=== PATIENT | female | born 1960 | race Caucasian/White ===

== ENCOUNTER 2018-05-18 03:29 | Emergency (ER) | payer SELFPAY ==
[~2018-05-18] VITALS: Ht 157.5 cm; Wt 66.2 kg
[~2018-05-18 03:29] MED LIST: ALB0.5V; ASP81TEC PO; CRS350T PO; HYDR-3720; HYDR-3720 PO; METH4TAB PO; METO-354 PO; NAPR-243 PO; ONDAN4ODT PO; PNT40TEC PO; RANI-10 PO; RT-ALBUINH IH; SULF1TAB35 PO; TRAM-42 PO; TRM50T PO; [UNRECOGNIZED DRUG - REMARK]
[2018-05-18] MEDS ORDERED: LORATADINE (CLARITIN) 10 MG TAB PO ONE (03:45)
--- NOTE | 2018-05-18 03:49 | ED Respiratory ---
General Chief Complaint: Allergic Reaction Stated Complaint: L ARM NUMB THROAT SWOLLEN Source: patient Exam Limitations: no limitations History of Present Illness Date Seen by Provider: May 18, 2018 Time Seen by Provider: 03:35 Initial Comments The patient presents to the ER by private conveyance with a chief complaint that she was woken from sleep feeling like she was a little short of breath and her throat was swelling shut. She says however with a bout 1020 minutes it went away. She's not feeling as bad now she still feels a little itchy in her throat. She has a history of COPD. She is not having any wheezing or stridor however. She has no nausea vomiting fevers chills chest pain, abdominal pain diarrhea or constipation. She says she recently started Ultram yesterday with her first dose and final dose being at 1600, approximately 12 hours ago. She was started on that from the ER for an exacerbation of back pain that started a couple weeks ago. She is not had any other changes in her life recently. She says the same thing happened to her once when she took prednisone she said she felt tight in her throat. Allergies and Home Medications Allergies Coded Allergies: codeine (Unverified Allergy, Mild, HIVES, 03/23/09) Home Medications Albuterol Sulfate 1 Puff Puff, 2 PUFF IH Q4H, (Reported) 1 PUFF = 90 MCG Tramadol HCl 50 Mg Tablet, 50 MG PO Q6H PRN for PAIN-MODERATE TO SEVERE Prescribed by: SUSAN NAVAS on 05/13/18 6846 Patient Home Medication List Home Medication List Reviewed: Yes Review of Systems Constitutional: No chills, No fever, No malaise EENTM: No ear discharge, No ear pain Respiratory: No cough, No short of breath Cardiovascular: No chest pain, No palpitations Gastrointestinal: No abdominal pain, No constipation, No diarrhea, No nausea Genitourinary: No discharge, No dysuria Musculoskeletal: No back pain, No joint pain Past Nvioupm-Ihbure-Ascrjt Hx Patient Social History Alcohol Use: Denies Use Recreational Drug Use: No Smoking Status: Current Everyday Smoker Type Used: Cigarettes Recent Foreign Travel: No Contact w/Someone Who Travel: No Recent Hopitalizations: No Immunizations Up To Date Tetanus Booster (TDap): Less than 5yrs PED Vaccines UTD: No Date of Pneumonia Vaccine: Sep 17, 2013 Seasonal Allergies Seasonal Allergies: No Past Medical History Surgeries: Yes Appendectomy, Gallbladder Respiratory: Yes Pneumonia, COPD Cardiac: No Neurological: No Reproductive Disorders: No Female 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 Sexually Transmitted Disease: No HIV/AIDS: No Gastrointestinal: No Gastroesophageal Reflux Musculoskeletal: No Endocrine: No Cataract Loss of Vision: Denies Hearing Impairment: Denies Cancer: No Psychosocial: No Integumentary: No Blood Disorders: No Adverse Reaction/Blood Tranf: No Family Medical History Cancer 19 MOTHER (BRAIN AT AGE 63) G8 BROTHER (THROAT) G8 SISTER Congestive heart failure 19 FATHER Family history: Breast disease G8 SISTER (BREAST CANCER) Family history: Cardiovascular disease 19 FATHER Family history: Diabetes mellitus 19 MOTHER G8 BROTHER History of - respiratory disease 19 FATHER Human immunodeficiency virus (HIV) seropositivity G8 SISTER, Onset:Unknown Physical Exam Vital Signs Capillary Refill : General Appearance: no apparent distress, other (disheveled) Eyes: Bilateral Eye Normal Inspection, Bilateral Eye PERRL, Bilateral Eye EOMI HEENT: PERRL/EOMI, normal ENT inspection, TMs normal, pharynx normal (no erythema, tonsillar swelling, stridor, exudates) Neck: non-tender, full range of motion, supple, normal inspection Respiratory: chest non-tender, lungs clear, normal breath sounds, no respiratory distress, no accessory muscle use Cardiovascular: normal peripheral pulses, regular rate, rhythm, no edema Neurologic/Psychiatric: alert, normal mood/affect, oriented x 3 Progress/Results/Core Measures Suspected Sepsis SIRS Temperature: Pulse: Respiratory Rate: Blood Pressure / Mean: Results/Orders My Orders Orders - SHERICE FIGUEROA Loratadine Tablet (Claritin Tablet) (05/18/18 03:45) Vital Signs/I&O Capillary Refill : Progress Note : Time: 03:47 Progress Note Perhaps she is having some allergies as why she has a scratchy sore throat but there is no evidence of any stridor or laryngitis or anaphylaxis. If she took tramadol at 1600, then 12 hours later is unreasonable to expect an anaphylactic reaction. We'll give her some Claritin and have her follow-up with her primary care doctor this week. Departure Impression Primary Impression: Sore throat Disposition: 01 HOME, SELF-CARE Condition: Stable Departure-Patient Inst. Decision time for Depature: 03:48 Referrals: JAMES SIDDIQUI (PCP/Family) Primary Care Physician Patient Instructions: Seasonal Allergies (DC) Add. 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 Follow up with your primary care doctor this week. If you have a difficult time breathing , wheezing or whistling sound when he breathes or if you have fevers above 102.5 Fahrenheit you should follow-up in the ER. All discharge instructions reviewed with patient and/or family. Voiced understanding. Copy Copies To 1: ADILIA CRUZ TITUS J May 18, 2018 03:49
[2018-05-18 03:58] VITALS: BP 128/85
== END 2018-05-18 03:58 | disposition home or self-care (01) ==
LOC: EDUNIT# 03:29 → ER 03:32
DX: J02.9 Acute pharyngitis, unspecified (principal); J44.9 Chronic obstructive pulmonary disease, unspecified; K21.9 Gastro-esophageal reflux disease without esophagitis; F17.210 Nicotine dependence, cigarettes, uncomplicated; Z87.01 Personal history of pneumonia (recurrent); Z90.49 Acquired absence of other specified parts of digestive tract; Z98.890 Other specified postprocedural states; Z88.5 Allergy status to narcotic agent
CPT/HCPCS: 99283

== ENCOUNTER → 2019-09-28 | Outpatient (CLI) | payer SELFPAY ==
--- NOTE | 2019-09-28 16:27 | Diagnostic Imaging Report ---
INDICATION: Disorders of bone density, postmenopausal state. COMPARISON: None available. FINDINGS: AP Spine L1-L4: [BMD (g/cm2): 0.921] [T-Score: -2.3] [Z-Score: -1.2] [BMD Previous: N/A] [BMD % Change: N/A] LT Hip Neck: [BMD (g/cm2): 0.666] [T-Score: -2.7] [Z-Score: -1.5] LT Hip Total: [BMD (g/cm2):0.699] [T-Score:-2.4] [Z-Score: -1.6] [BMD Previous: N/A] [BMD % Change: N/A] RT Hip Neck: [BMD (g/cm2):0.686] [T-Score:-2.5] [Z-Score:-1.3] RT Hip Total: [BMD (g/cm2):0.751] [T-score:-2.0] [Z-Score:-1.2] [BMD Previous:N/A] [BMD % Change:N/A] *Indicates significant change from prior examination based on 95% confidence level. World Health Organization criteria for BMD interpretation classify patients as Normal (T-score at or above -1.0), Osteopenic (T-score between -1.0 and -2.5) or Osteoporotic (T-score at or below -2.5). LIMITATIONS AND MODIFICATION: None. FRACTURE RISK (FRAX SCORE): The ten year probability of (%): Major Osteoporotic Fracture: [13.5] Hip Fracture: [4.5] IMPRESSION: 1. Osteoporosis. 2. Baseline examination. 3. See below National Osteoporosis Foundation guidelines on when to potentially initiate pharmacologic therapy. Based on the National Osteoporosis Foundation Guidelines, pharmacologic treatment should be initiated in any of the following, unless clinical conditions suggest otherwise: * Any patient with prior fragility fracture of the hip or vertebrae. A spine fracture indicates 5X risk for subsequent spine fracture and 2X risk for subsequent hip fracture. * Osteoporosis (T-score <-2.5). * Postmenopausal women and men age 50 and older with low bone mass/osteopenia (T-score between -1.0 and -2.5) by DXA and 10-year major osteoporotic fracture greater than 20% or a 10-year probability of hip fracture greater than 3%. These fracture risks are supplied above in the FRAX score, if applicable. * Clinician judgment and/or patient preferences may indicate treatment for people with 10-year fracture probabilities above or below these levels. Dictated by: Dictated on workstation # [id number]
== END ==
LOC: RAD 12:00
PROVIDERS: ATTEND Nurse Practitioner Community Health
DX: M81.0 Age-related osteoporosis without current pathological fracture (principal); M85.861 Other specified disorders of bone density and structure, right lower leg; M85.862 Other specified disorders of bone density and structure, left lower leg; Z78.0 Asymptomatic menopausal state
CPT/HCPCS: 77080

== ENCOUNTER → 2019-10-19 | Outpatient (CLI) | payer OTHER ==
--- NOTE | 2019-10-19 15:21 | Diagnostic Imaging Report ---
PROCEDURE: MRI lumbar spine. TECHNIQUE: Multiplanar, multisequence MRI of the lumbar spine was performed without contrast. INDICATION: Low back pain. COMPARISON: No prior MRI studies are available for comparison. FINDINGS: Curvature and alignment of the lumbar spine is normal. There appears to be a chronic central compression involving L1 superior endplate as well as L5 superior and inferior endplates. No acute compression fracture is seen. There is normal marrow signal intensity throughout the lumbar vertebrae. Fairly normal height to the lumbar discs is seen. The conus is unremarkable at the L1 level. T12-L1: Central canal and neural foramina are widely patent. L1-L2: Central canal is widely patent. Neural foramina are patent. L2-L3: Central canal is widely patent. Neural foramina are patent. L3-L4: Central canal is widely patent. Neural foramina are patent. L4-L5: Bulky hypertrophic facet changes are noted with ligamentous thickening. Central canal remains patent. Mild bilateral neural foraminal narrowing is seen. L5-S1: Hypertrophic facet changes are noted. Central canal is patent. Neural foramina are patent. Paraspinous tissues are unremarkable. IMPRESSION: Lower lumbar spondylosis and facet arthropathy. Mild neural foraminal narrowing is seen bilaterally at the L4-L5 level. No central canal stenosis is detected. There appear to be chronic compression fractures at the L1 and L5 levels. No acute compression fracture is detected. Dictated by: Dictated on workstation # [id number]
== END ==
LOC: RAD 10-01 11:28
PROVIDERS: ATTEND Nurse Practitioner
DX: M17.12 Unilateral primary osteoarthritis, left knee (principal); M47.26 Other spondylosis with radiculopathy, lumbar region
CPT/HCPCS: 72148

== ENCOUNTER 2020-02-09 21:59 | Emergency (ER) | payer SELFPAY ==
[~2020-02-09] VITALS: Ht 160 cm; Wt 66.7 kg
[2020-02-09] MEDS ORDERED: LACTATED RINGERS 1,000 ML IV STA (22:19)
[2020-02-09 22:25] LABS: BASOPHILS % (AUTO) 0 % (0-10); EOSINOPHILS # (AUTO) 0.2 10^3/uL (0.0-0.3); EOSINOPHILS % (AUTO) 1 % (0-10); HEMATOCRIT 43 % (35-52); HEMOGLOBIN 14.6 G/DL (11.5-16.0); LYMPHOCYTES # (AUTO) 3.5 X 10^3 (1.0-4.0); LYMPHOCYTES % (AUTO) 27 % (12-44); MEAN CORPUSCULAR HEMOGLOBIN 31 PG (25-34); MEAN CORPUSCULAR HGB CONC 34 G/DL (32-36); MEAN CORPUSCULAR VOLUME 90 FL (80-99); MEAN PLATELET VOLUME 9.7 FL (7.4-10.4); MONOCYTES # (AUTO) 1.4 X 10^3 (0.0-1.0); MONOCYTES % (AUTO) 11 % (0-12); NEUTROPHILS % (AUTO) 61 % (42-75); PLATELET COUNT 237 10^3/uL (130-400); RED CELL DISTRIBUTION WIDTH 12.7 % (10.0-14.5); WHITE BLOOD COUNT 13.1 10^3/uL (4.3-11.0)
--- NOTE | 2020-02-09 22:29 | ED Abdominal Pain ---
General Chief Complaint: Abdominal/GI Problems Stated Complaint: STOMACH PAIN Nursing Triage Note: PT AMBULATE TO ROOM 07 WITH C/O ABD PAIN X3 DAYS. PT STATES PAIN STARTED AFTER EATING AT THE [employer]. PT REPORTS TAKING IBUPROFEN WITHOUT RELIEF. PT STATES TAKING TYLENOL FOR HAND PAIN. PT STATES SHE ATTEMPTED TO SEE PCP AND [facility] AND COULD NOT GET IN TO SEE HIM. SHE STATES SHE DID NOT ATTEMPT TO SEE ANOTHER PROVIDER AT [facility]. Sepsis Screen: No Definite Risk Source of Information: Patient History of Present Illness Date Seen by Provider: Feb 09, 2020 Time Seen by Provider: 22:09 Initial Comments PT ARRIVES VIA POV FROM HOME C/O LOWER ABDOMINAL PAIN FOR THE LAST 3 DAYS PAIN COMES AND GOES, NOTHING WORSENS OR IMPROVES PAIN STATES PAIN STARTED "AFTER SHE ATE [employer]" C/O NAUSEA WITH DRY HEAVES A COUPLE OF DAYS AGO, OTHERWISE HAS NOT HAD ANY OTHER NAUSEA/VOMITING/DIARRHEA OR CONSTIPATION. HAD A NORMAL BM 3 HOURS AGO NO PROBLEMS URINATING AND VOIDING A NORMAL AMOUNT NO FEVER ATE [place] AND CHEESE AND HAS BEEN DRINKING SPRITE. 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, DIANN SIDDIQUI Allergies and Home Medications Allergies Coded Allergies: codeine (Unverified Allergy, Mild, HIVES, 03/23/09) Home Medications Albuterol Sulfate 1 Puff Puff, 2 PUFF IH Q4H, (Reported) 1 PUFF = 90 MCG Ciprofloxacin HCl 500 Mg Tablet, 500 MG PO BID Prescribed by: LUKAS AHUJA on 02/10/2016 Hyoscyamine Sulfate 0.125 Mg Tab.subl, 0.25 MG SL Q4H Prescribed by: LUKAS AHUJA on 02/10/2016 Metronidazole 500 Mg Tablet, 500 MG PO QID Prescribed by: LUKAS AHUJA on 02/10/2016 Ondansetron 8 Mg Tab.rapdis, 8 MG PO Q6H Prescribed by: LUKAS AHUJA on 02/10/2016 Tramadol HCl 50 Mg Tablet, 50 MG PO Q6H PRN for PAIN-MODERATE TO SEVERE Prescribed by: SUSAN NAVAS on 05/13/18 8906 Tramadol HCl 50 Mg Tablet, 50 MG PO Q4H Prescribed by: LUKAS AHUJA on 02/10/2016 Patient Home Medication List Home Medication List Reviewed: Yes Review of Systems Review of Systems Constitutional: no symptoms reported; No chills, No diaphoresis, No dizziness, No fever EENTM: No Symptoms Reported; No Nose Congestion, No Throat Pain Respiratory: No Symptoms Reported; Denies Cough, Denies Shortness of Air, Denies Wheezing Cardiovascular: No Symptoms Reported; Denies Chest Pain Gastrointestinal: See HPI, Abdominal Pain; Denies Constipated, Denies Diarrhea; Nausea (PER HPI), Poor Appetite; Denies Poor Fluid Intake, Denies Vomiting Genitourinary: No Symptoms Reported Musculoskeletal: no symptoms reported; No back pain Skin: no symptoms reported Psychiatric/Neurological: No Symptoms Reported Endocrine: No Symptoms Reported Past Htlmkyd-Hjmkhi-Hokpqy Hx Past Med/Social Hx: Reviewed and Corrections made Patient Social History Alcohol Use: Denies Use Recreational Drug Use: Yes (+ IV METH USE, THC USE) Smoking Status: Current Everyday Smoker (1 1/2 PPD) Type Used: Cigarettes (11 17/2 PPD) 2nd Hand Smoke Exposure: Yes Recent Foreign Travel: No Contact w/Someone Who Travel: No Recent Infectious Disease Expo: No Recent Hopitalizations: No Physical Abuse: No Sexual Abuse: No Mistreated: No Fear: No Immunizations Up To Date Tetanus Booster (TDap): Less than 5yrs PED Vaccines UTD: No Date of Pneumonia Vaccine: Sep 17, 2013 Seasonal Allergies Seasonal Allergies: No Past Medical History Surgeries: Yes (EGD/COLONOSCOPY) Appendectomy, Gallbladder Respiratory: Yes Pneumonia, COPD Cardiac: No Neurological: Yes Headaches /Migraines Reproductive Disorders: No Female 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 Sexually Transmitted Disease: No HIV/AIDS: No Genitourinary: No Gastrointestinal: Yes (S/P APPY AND CHOLECYSTECTOMY;HEPATITIS C --NO TREATMENT) Gastroesophageal Reflux, Hepatitis, Gall Bladder Disease Musculoskeletal: Yes (BILATERAL HAND PAIN ) Endocrine: No HEENT: Yes (POOR DENTITION) Cataract Loss of Vision: Denies Hearing Impairment: Denies Cancer: No Psychosocial: No Integumentary: No Blood Disorders: No Adverse Reaction/Blood Tranf: No Family Medical History Cancer 19 MOTHER (BRAIN AT AGE 63) G8 BROTHER (THROAT) G8 SISTER Congestive heart failure 19 FATHER Family history: Breast disease G8 SISTER (BREAST CANCER) Family history: Cardiovascular disease 19 FATHER Family history: Diabetes mellitus 19 MOTHER G8 BROTHER History of - respiratory disease 19 FATHER Human immunodeficiency virus (HIV) seropositivity G8 SISTER, Onset:Unknown Physical Exam Vital Signs Vital Signs - First Documented 02/09/20 02/10/20 22:10 00:22 Temp 36.9 Pulse 90 Resp 17 B/P (MAP) 143/86 (105) Pulse Ox 95 O2 Delivery Room Air Capillary Refill : Less Than 3 Seconds Height/Weight/BMI Height: 5'2.00" Weight: 146lbs. oz. [id number]; 26.00 BMI Method:Stated General Appearance: WD/WN, no apparent distress, other (CONSTANT MOVEMENTS OF ENTIRE BODY AND MOUTH; UNKEMPT, REEKS OF CIGARETTES) HEENT: other (EXTREMELY POOR DENTITON--NEARLY ALL TEETH MISSING OR DECAYED DOWN TO GUMS, REMAINING TOOTH TO RIGHT LOWER GUMS WITH EXTENSIVE DECAY. 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 ) Progress/Results/Core Measures Results/Orders Lab Results Laboratory Tests Test 02/09/20 22:17 02/09/20 22:19 Range/Units White Blood Count 13.1 H 4.3-11.0 10^3/uL Red Blood Count 4.78 4.35-5.85 10^6/uL Hemoglobin 14.6 11.5-16.0 G/DL Hematocrit 43 35-52 % Mean Corpuscular Volume 90 80-99 FL Mean Corpuscular Hemoglobin 31 25-34 PG Mean Corpuscular Hemoglobin Concent 34 32-36 G/DL Red Cell Distribution Width 12.7 10.0-14.5 % Platelet Count 237 130-400 10^3/uL Mean Platelet Volume 9.7 7.4-10.4 FL Neutrophils (%) (Auto) 61 42-75 % Lymphocytes (%) (Auto) 27 12-44 % Monocytes (%) (Auto) 11 0-12 % Eosinophils (%) (Auto) 1 0-10 % Basophils (%) (Auto) 0 0-10 % Neutrophils # (Auto) 8.0 H 1.8-7.8 X 10^3 Lymphocytes # (Auto) 3.5 1.0-4.0 X 10^3 Monocytes # (Auto) 1.4 H 0.0-1.0 X 10^3 Eosinophils # (Auto) 0.2 0.0-0.3 10^3/uL Basophils # (Auto) 0.0 0.0-0.1 10^3/uL Sodium Level 138 135-145 MMOL/L Potassium Level 3.9 3.6-5.0 MMOL/L Chloride Level 103 98-107 MMOL/L Carbon Dioxide Level 24 21-32 MMOL/L Anion Gap 11 5-14 MMOL/L Blood Urea Nitrogen 8 7-18 MG/DL Creatinine 0.76 0.60-1.30 MG/DL Estimat Glomerular Filtration Rate > 60 BUN/Creatinine Ratio 11 Glucose Level 158 H 70-105 MG/DL Calcium Level 9.4 8.5-10.1 MG/DL Corrected Calcium 9.3 8.5-10.1 MG/DL Magnesium Level 1.7 1.6-2.4 MG/DL Total Bilirubin 0.5 0.1-1.0 MG/DL Aspartate Amino Transf (AST/SGOT) 51 H 5-34 U/L Alanine Aminotransferase (ALT/SGPT) 61 H 0-55 U/L Alkaline Phosphatase 110 40-136 U/L Total Protein 7.2 6.4-8.2 GM/DL Albumin 4.1 3.2-4.5 GM/DL Amylase Level 54 25-125 U/L Lipase 30 8-78 U/L Acetaminophen Level < 10 L 10-30 UG/ML Serum Alcohol < 10 <10 MG/DL Urine Color YELLOW Urine Clarity CLEAR Urine pH 7.0 5-9 Urine Specific [place] <=1.005 1.016-1.022 Urine Protein NEGATIVE NEGATIVE Urine Glucose (UA) NEGATIVE NEGATIVE Urine Ketones NEGATIVE NEGATIVE Urine Nitrite NEGATIVE NEGATIVE Urine Bilirubin NEGATIVE NEGATIVE Urine Urobilinogen 0.2 < = 1.0 MG/DL Urine Leukocyte Esterase NEGATIVE NEGATIVE Urine RBC (Auto) 1+ H NEGATIVE Urine RBC NONE /HPF Urine WBC NONE /HPF Urine Squamous Epithelial Cells RARE /HPF Urine Crystals NONE /LPF Urine Bacteria NEGATIVE /HPF Urine Casts NONE /LPF Urine Mucus NEGATIVE /LPF Urine Culture Indicated NO Urine Opiates Screen NEGATIVE NEGATIVE Urine Oxycodone Screen NEGATIVE NEGATIVE Urine Methadone Screen NEGATIVE NEGATIVE Urine Propoxyphene Screen NEGATIVE NEGATIVE Urine Barbiturates Screen NEGATIVE NEGATIVE Ur Tricyclic Antidepressants Screen NEGATIVE NEGATIVE Urine Phencyclidine Screen NEGATIVE NEGATIVE Urine Amphetamines Screen NEGATIVE NEGATIVE Urine Methamphetamines Screen NEGATIVE NEGATIVE Urine Benzodiazepines Screen NEGATIVE NEGATIVE Urine Cocaine Screen NEGATIVE NEGATIVE Urine Cannabinoids Screen NEGATIVE NEGATIVE My Orders Orders - LUKAS AHUJA DO Ed Iv/Invasive Line Start (02/09/20 22:19) Monitor-Rhythm Ecg Trace Only (02/09/20 22:19) Acetaminophen (02/09/20 22:19) Alcohol (02/09/20 22:19) Amylase (02/09/20 22:19) Cbc With Automated Diff (02/09/20 22:19) Comprehensive Metabolic Panel (02/09/20 22:19) Drug Screen Stat (Urine) (02/09/20 22:19) Lipase (02/09/20 22:19) Magnesium (02/09/20 22:19) Ua Culture If Indicated (02/09/20 22:19) Ondansetron Injection (Zofran Injectio (02/09/20 22:30) Lactated Ringers (Lr 1000 Ml Iv Solution (02/09/20 22:19) Ed Iv/Invasive Line Start (02/09/20 22:19) Ct Abd/Pelvis Wo(Kidney Stone) (02/09/20 23:02) Acute Abd Series (02/09/20 23:02) Ketorolac Injection (Toradol Injection) (02/09/20 23:15) Hyoscyamine Sl Tablet (Levsin Sl Tablet) (02/09/20 23:15) Ciprofloxacin Tablet (Cipro Tablet) (02/10/20 00:15) Metronidazole Tablet (Flagyl Tablet) (02/10/20 00:15) Rx-Ondansetron Po (Rx-Zofran Po) (02/10/20 00:06) Rx-Tramadol Hcl (Rx-Ultram) (02/10/20 00:06) Rx-Hyoscyamine Tab (Rx-Levsin Sl) (02/10/20 00:06) Ketorolac Injection (Toradol Injection) (02/09/20 23:06) Hyoscyamine Sl Tablet (Levsin Sl Tablet) (02/09/20 23:06) Medications Given in ED Current Medications Medications Dose Ordered Sig/Kemi Route Start Time Stop Time Status Last Admin Dose Admin Hyoscyamine Sulfate 0.25 mg ONCE ONCE PO 02/09/20 23:15 02/10/20 00:25 DC 02/09/20 23:14 0.25 MG Ketorolac Tromethamine 30 mg ONCE ONCE IVP 02/09/20 23:15 02/10/20 00:25 DC 02/09/20 23:14 30 MG Metronidazole 500 mg ONCE ONCE PO 02/10/20 00:15 02/10/20 00:16 DC 02/10/20 00:23 500 MG Ondansetron HCl 4 mg ONCE ONCE IVP 02/09/20 22:30 02/09/20 22:31 DC 02/09/20 22:29 4 MG Vital Signs/I&O 02/09/20 02/09/20 02/10/20 22:10 23:14 00:22 Temp 36.9 36.9 36.6 Pulse 90 78 Resp 17 16 B/P (MAP) 143/86 (105) 107/52 (105) Pulse Ox 95 O2 Delivery Room Air Room Air 02/10/20 00:00 Intake Total 1000 ml Balance 1000 ml Blood Pressure Mean: 105 Progress Progress Note : Progress Note GIVEN ZOFRAN, TORADOL AND LEVSIN WITH SIGNIFICANT IMPROVEMENT IN PAIN PT WITH NO FEVER, NO PERFORATION OR ABSCESS, NO SEVERE LEUKOCYTOSIS, AND RELIEF OF PAIN--WILL TREAT WITH PO ANTIBIOTICS AND FOLLOW UP WITH SURGEON IN OFFICE FOR FURTHER CARE Consults : Consults Notes ACUTE ABDOMEN XRAYS--NO ACUTE PROCESS, PENDING RADIOLOGIST REVIEW CT ABDOMEN/PELVIS--SIGMOID DIVERTICULITIS. , LLL PULMONARY NODULE 6 MM, VASCULAR CALCIFICATIONS--PER [facility] VIA FAX AT [phone] Departure Impression Primary Impression: ACUTE SIGMOID DIVERTICULITIS Disposition: 01 HOME, SELF-CARE Condition: Improved Departure-Patient Inst. Referrals: [facility] (PCP) Primary Care Physician JAMES SIDDIQUI (Family) Primary Care Physician CJ COOK DO Patient Instructions: Diverticulitis (DC) Add. Discharge Instructions: CLEAR LIQUIDS--WATER, BROTH, JELLO, GATORADE, POPSICLES NO FOOD FOLLOW UP WITH DR. COOK THIS WEEK FOR FURTHER CARE, RETURN TO ER IF WORSE All discharge instructions reviewed with patient and/or family. Voiced understanding. Scripts Tramadol HCl (Ultram) 50 Mg Tablet 50 MG PO Q4H for Pain, #20 TAB Prov: LUKAS AHUJA DO 02/10/20 Ondansetron (Ondansetron Odt) 8 Mg Tab.rapdis 8 MG PO Q6H, #10 TAB Prov: LUKAS AHUJA DO 02/10/20 Hyoscyamine Sulfate (Levsin-Sl) 0.125 Mg Tab.subl 0.25 MG SL Q4H, #10 TAB Prov: LUKAS AHUJA DO 02/10/20 Metronidazole (Flagyl) 500 Mg Tablet 500 MG PO QID, #40 TAB Prov: LUKAS AHUJA K DO 02/10/20 Ciprofloxacin HCl (Ciprofloxacin HCl) 500 Mg Tablet 500 MG PO BID, #14 TAB Prov: LUKAS AHUJA DO 02/10/20 LUKAS AHUJA DO Feb 09, 2020 22:29
[2020-02-09] MEDS ORDERED: ONDANSETRON 4 MG/2 ML (SDV) Z0FRAN IVP ONE (22:30)
[2020-02-09 22:37] LABS: BILIRUBIN,URINE NEGATIVE (NEGATIVE); CLARITY,URINE CLEAR; COLOR,URINE YELLOW; GLUCOSE, URINE (UA) NEGATIVE (NEGATIVE); KETONES,URINE NEGATIVE (NEGATIVE); LEUKOCYTE ESTERASE ,URINE NEGATIVE (NEGATIVE); NITRITE,URINE NEGATIVE (NEGATIVE); PROTEIN,URINE NEGATIVE (NEGATIVE)
[2020-02-09 22:42] LABS: ALANINE AMINOTRANSFERASE 61 U/L (0-55); ALBUMIN 4.1 GM/DL (3.2-4.5); ALKALINE PHOSPHATASE 110 U/L (40-136); AMYLASE 54 U/L (25-125); BILIRUBIN,TOTAL 0.5 MG/DL (0.1-1.0); BUN/CREATININE RATIO 11; CALCIUM 9.4 MG/DL (8.5-10.1); CARBON DIOXIDE 24 MMOL/L (21-32); CHLORIDE 103 MMOL/L (98-107); CREATININE SERUM 0.76 MG/DL (0.60-1.30); GFR ESTIMATED > 60; GLUCOSE 158 MG/DL (70-105); LIPASE 30 U/L (8-78); MAGNESIUM 1.7 MG/DL (1.6-2.4); POTASSIUM 3.9 MMOL/L (3.6-5.0); SODIUM 138 MMOL/L (135-145); TOTAL PROTEIN 7.2 GM/DL (6.4-8.2)
[2020-02-09 22:43] LABS: ACETAMINOPHEN < 10 UG/ML (10-30)
[2020-02-09 22:43] LABS: BACTERIA,URINE NEGATIVE /HPF; SQUAMOUS EPITHELIAL CELL,UR RARE /HPF
[2020-02-09 22:50] LABS: AMPHETAMINE SCREEN, URINE NEGATIVE (NEGATIVE); BARBITURATE SCREEN URINE NEGATIVE (NEGATIVE); BENZODIAZEPINES SCREEN URINE NEGATIVE (NEGATIVE); CANNABINOID SCREEN, URINE NEGATIVE (NEGATIVE); COCAINE SCREEN URINE NEGATIVE (NEGATIVE); METHADONE STAT NEGATIVE (NEGATIVE); METHAMPHETAMINE SCREEN URINE S NEGATIVE (NEGATIVE); OPIATE SCREEN URINE NEGATIVE (NEGATIVE); OXYCODONE STAT NEGATIVE (NEGATIVE); PROPOXYPHENE STAT NEGATIVE (NEGATIVE); TRICYCLIC ANTIDEPRESSANTS SCRE NEGATIVE (NEGATIVE)
[2020-02-09] MEDS ORDERED: HYOSCYAMINE 0.125 MG (LEVSIN) TAB ONE (23:06)
[2020-02-09] MEDS ORDERED: KETOROLAC 30 MG/ML VIAL ONE (23:06)
[2020-02-09] MEDS ORDERED: KETOROLAC 30 MG/ML VIAL IVP ONE (23:15)
[2020-02-09] MEDS ORDERED: HYOSCYAMINE 0.125 MG (LEVSIN) TAB PO ONE (23:15)
[2020-02-10] MEDS ORDERED: RX-TRAMADOL 50 MG (ULTRAM) TAB PPK#4 PO STA (00:06)
[2020-02-10] MEDS ORDERED: RX-HYOSCYAMINE 0.125 MG SL (LEVSIN) PPK#6 SL STA (00:06)
[2020-02-10] MEDS ORDERED: RX-ONDANSETRON 4 MG ODT (ZOFRAN) PPK #4 PO STA (00:06)
[2020-02-10] MEDS ORDERED: metroNIDAZOLE 500 MG (FLAGYL) TAB PO ONE (00:15)
[2020-02-10] MEDS ORDERED: CIPROFLOXACIN 500 MG (CIPRO) TABLET PO SCH (00:15)
[2020-02-10] MEDS ORDERED: CIPR500T4 PO (00:17)
[2020-02-10] MEDS ORDERED: TRAM-42 PO (00:17)
[2020-02-10] MEDS ORDERED: HYOS0.1283 SL (00:17)
[2020-02-10] MEDS ORDERED: ONDA8TAB13 PO (00:17)
[2020-02-10] MEDS ORDERED: METR500T PO (00:17)
[2020-02-10 00:22] VITALS: BP 107/52
--- OUTSIDE RECORDS SUMMARY | 2020-02-10 01:05 | XMS REPORT ---
Author Author [employer]. Organization [employer] Address [address] [place] [address] Care Team Providers Care Fitter Type Bar And Segment Name Role Phone JEROMY DELCID Unavailable ROXANA ELIZALDE Unavailable JAMES SIDDIQUI Unavailable JAMES SIDDIQUI Unavailable JAMES SIDDIQUI Unavailable JAMES SIDDIQUI Unavailable JAMES SIDDIQUI Unavailable JAMES SIDDIQUI Unavailable ELVIS Siddiqi Unavailable JMAES SIDDIQUI Unavailable JAMES SIDDIQUI Unavailable IWONA STEWARD Unavailable JAMES SIDDIQUI Unavailable TARI MORENO Unavailable JAMES SIDDIQUI Unavailable Unavailable JEROMY DELCID DO Unavailable Unavailable JEROMY DELCID DO Unavailable Unavailable SUSAN ROBERSON MD Unavailable Unavailable JAMES SIDDIQUI CORRECTIONAL SERGEANT Unavailable Unavailable JOHN KOHLER CORRECTIONAL SERGEANT Unavailable Unavailable FADIA CEE, CARMEN Zimmerman Unavailable Unavailable Unavailable Unavailable Allergies Normalized Allergy Reported Date of Reaction(s) Care Provider Facility Allergy Type classification allergen Allergy Onset Drug Allergy Corticosteroid predniSONE 06-09-2018 - Throat ARCADIO ID [facility] (1 source.) s Translations: [address] [ PredniSONE] [facility] ([address]) Medications Current Medications Medication Ingredient Drug Dose Dates Status Sig Sig Care Class(es) (Normalized) (Original) Provid er 120 actuat albuterol / Anticholine 1 05-05-20 Active take 1 Combivent no albuterol ipratropium rgic, puff(s 18 puff(s) by Respimat n eddy 0.1 Translation beta2-Adren ) inhalation 20-100 ( no mg/actuat / s: [ ergic four times MCG/ACT phone) ipratropium Combivent Agonist daily Inhalation bromide Respimat Four times a 0.02 20-100 day 1 puff mg/actuat MCG/ACT, 6h Apr, metered Combivent 2017 90 days dose Respimat Active inhaler (2 20-100 sources.) MCG/ACT] amoxicillin amoxicillin Penicillin- 1000 02-17-20 Active no Amoxicillin no 500 mg oral Translation class mg 18 - information 500 mg name capsule (1 s: [ Antibacteri 03-02-20 Orally 2 (no source.) Amoxicillin al 18 times a day phone) 500 mg] 2 capsules 12h Feb, Feb, 14 days Active benzonatate benzonatate Non-narcoti 100 mg 03-10-20 Active no Tessalon no 100 mg oral Translation c 17 information Perles 100 name capsule (1 s: [ Antitussive mg Orally (no source.) Tessalon before bed 1 phone) Perles 100 capsule as mg] needed Feb, Active diazePAM 10 diazePAM Benzodiazep 10 mg 09-29-20 Active no V alium 10 mg no mg oral Translation ine 17 information Orally Twice name tablet (3 s: [ Valium a day 1 (no sources.) 10 mg] tablet as phone) needed 12h 13 Sep, 2017 Active hydrOXYzine hydrOXYzine Antihistami 25 mg 06-09-20 Active no HydrOXYzine no hydrochlori Translation ne 18 information HCl 25 MG name de 25 mg s: [ Orally 3 (no oral tablet HydrOXYzine times a day phone) (1 source.) HCl 25 MG] 1 tablet as needed 8h May, 05 days Active no Ipratropium no 2 05-05-20 Active take 2 Ipratrop ium no information [facility] HFA information puff(s 18 - puff(s) by Brom enedelia HFA name (1 source.) 17 MCG/ACT ) 06-02-20 inhalation 17 MCG/ACT (no 18 four times Inhalation phone) daily Four times a day 2 puffs 6h Apr, May, 28 days Active LORazepam 1 LORazepam Benzodiazep 1 mg 09-19-20 Active no Ativan 1 MG no mg oral Translation ine 17 information Orally Once name tablet (1 s: [ Ativan a day 1 (no source.) 1 MG] tablet at phone) bedtime as needed 24h Sep, Active metroNIDAZO metroNIDAZO Nitroimidaz 500 mg 02-17-20 Active no Metronidazol no LE 500 mg LE ole 18 - information e 500 mg name oral tablet Translation Antimicrobi 03-02-20 Orally Twice (n o (1 source.) s: [ al 18 a day 1 phone) Metronidazo tablet 12h le 500 mg] Feb, Feb, 14 days Active Completed/Discontinued Medications Medication Ingredient Drug Dose Dates Status Sig Sig Care Class(es) (Normalized) (Original) Provid er no Acetaminoph no 03-23-20 Complete take 10-325 Acetamino phe Tari information en/Hydrocod information 09 - d mg by mouth n/ Hydrocodon F (2 one Bitart 12-12-19 every four e Bitart Huerte sources.) (Lortab 12 to six hours (Lortab r (no 10-325 Mg) as needed 10-325 Mg) 1 phone) 1 Ea Tab, 1 Ea Tab, 1 Ea Ea Oral Oral Q 4 - 6 Hrs Prn 03/23/09 Discontinued no Acetaminoph no 12-12-19 Complete no Acetaminophe (no information en/Hydrocod information 12 d information n/ Hydrocodon phone) (2 one Bitart e Bitart sources.) (Lortab (Lortab 10-325 Mg) 10-325 Mg) 1 1 Ea Tab, Ea Tab, Not Not Applicable Applicable Discontinued no Albuterol no 12-06-19 Complete no Albuterol (no information (Proventil information 10 d information (Pr oventil phone) (2 0.5% Rt) 0.5% Rt) 2.5 sources.) 2.5 Mg/0.5 Mg/0.5 Ml Ml Nebu, Nebu, Not Not Applicable Applicable Discontinued no Albuterol no 1 Complete take 1 Albuterol (no information Sulfate information puff(s d puff(s) by Sulfate phone) (2 (Proair ) inhalation (Proair Hfa) sources.) Hfa) 1 Puff every four 1 Puff Puff Puff hours 2 Puff RESPIRATORY (INHALATION) Every 4HRS 1 PUFF = 90 MCG no Little no 12-12-19 Complete no Little Brown (no information Brown Pill information 12 d information Pil l , Not phone) (2 , Not Applicable sources.) Applicable Discontinued no Methylpredn no 07-23-20 Complete no Methylpredni Linda K information isolone information 09 - d information solone Meeker (2 (Medrol 12-06-19 (Medrol Dose (no sources.) Dose Pack) 10 Pack) 4 phone) 4 Mg/Dose-Pack Mg/Dose-Pac Tab.ds.pk, 0 k Oral As Tab.ds.pk, Directed 0 Oral 07/23/09 Discontinued no Metoclopram no 10 mg 12-12-19 Complete take 10 Metoc loprami Linda K information enedelia Hcl information 12 - d tablets by de Hcl Kaleb (4 (Reglan 10 06-09-20 mouth four (Reglan 10 (no sources.) Mg Tab) 10 14 times daily Mg Tab) 10 phone) Mg Tab, 1 as needed Mg Tab, 1 Each Oral Each Oral Qid Prn 12/12/11 Discontinued 10 mg 10-31-2011 Completed take Metoclop Linda K - 10 ramide Kaleb (no 12-12-2011 tablet Hcl phone) s by (Reglan mouth 10 Mg four Tab) 10 times Mg Tab, daily 1 Each as Oral Qid needed Prn 10/31/11 Disconti nued no Naproxen no 12-06-19 Complete no Naproxen Farhat information (Naprosyn) information 10 - d information (Na prosyn) K (2 500 Mg 12-12-19 500 Mg Leo sources.) Tablet, 1 12 Tablet, 1 (no Each Oral Each Oral phone) Twice A Day 12/06/09 Discontinued no Ondansetron no 12-12-19 Complete no Ondansetron L kev K information Hcl (Zofran information 12 - d information Hc l (Zofran Meeker (4 Oral 06-09-20 Oral (no sources.) Dissolve) 4 14 Dissolve) 4 phone) Mg Tab, 4 Mg Tab, 4 Mg Mg Oral Oral Every 4HRS 12/12/11 Discontinued 10-31-2011 Completed no Ondanset Linda K - inform johnathon Hcl Meeker (no 12-12-2011 ation (Zofran phone) Oral Dissolve ) 4 Mg Tab, 4 Mg Oral Every 4HRS 10/31/11 Disconti nued no Pantoprazol no 40 mg 12-12-19 Complete take 1 Pantop razole Linda K information e Sodium information 12 - d tablet by Sodium Kaleb (4 (Protonix) 06-09-20 mouth once (Protonix) (no sources.) 40 Mg 14 daily 40 Mg phone) Tablet., Tablet.dr, 1 1 Tab Oral Tab Oral Daily 12/12/11 Discontinued 40 mg 10-31-2011 Completed take 1 Pantopra Linda K - tablet zole Kaleb (no 12-12-2011 by Sodium phone) mouth (Protoni once x) 40 Mg daily Tablet.d r, 1 Tab Oral Daily 10/31/11 Disconti nued no Tramadol no 12-06-19 Complete take 50-50 Tramadol Hcl Farhat information Hcl information 10 - d tablets by (Ultram) 50 K (2 (Ultram) 50 12-12-19 mouth four Mg Tab, 50 - Bixle r sources.) Mg Tab, 50 12 times daily 100 Mg Oral (no - 100 Mg Four Times phone) Oral Daily 12/06/09 Discontinued no Trimethopri no 07-23-20 Complete no Trimethoprim Linda K information m/Sulfameth information 09 - d information /S ulfamethox Meeker (2 oxazole 12-06-19 azole (no sources.) (Bactrim 10 (Bactrim Ds) phone) Ds) 1 Each 1 Each Tablet, 1 Tablet, 1 Each Oral Each Oral Twice A Day 07/23/09 Discontinued Problems Active Problems Problem Normalized Date of Normalized Normalized Provider Fac ility Classification Problem(s) Problem Problem Problem Sta tus Onset/Resoluti Duration on Residual Acquired Episodic Active S[facility]AN [facility] Via codes; absence of Rasheeda ROBERSON unclassjus other Hospital - (1 source.) specified [place] parts of ([address]) digestive tract Osteoporosis Age-related Chronic Active JAMES SIDDIQUI [facility] Via (3 sources.) osteoporosis Rasheeda without Hospital - current [place] pathological ([address]) fracture Other nervous Anesthesia of Episodic Active CARMEN [facility] Via system skin MD Rahseeda LOAIZA disorders (5 Translations: Hospital - sources.) [ - Hand [place] numbness (12920) R20.0, - Hand numbness R20.0] Residual Asymptomatic Episodic Active JAMES SIDDIQUI [facility] Vi a codes; menopausal Rasheeda unclassified [facility] Hospital - (3 sources.) [place] ([address]) Coronary Atheroscleroti Chronic Active CARMEN [facility] Via atherosclerosi c heart MD Rasheeda LOAIZA s and other disease of Hospital - heart disease eagle [place] (2 sources.) coronary (98643) artery without angina pectoris Allergic Dermatitis, Episodic Active SUSAN [facility] Via reactions (9 unspecified Rasheeda ROBERSON sources.) Translations: 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 CARMEN [facility] Via aftercare (5 (current) use MD Rasheeda LOAIZA sources.) of aspirin Hospital - [place] ([address]) Spondylosis; Low back pain Episodic Active SUSAN [facility] V ia intervertebral Translations: Rasheeda ROBERSON disc [ LOW BACK [facility] - disorders; PAIN] [place] other back (55637) problems (7 sources.) Substance-rela Nicotine Chronic Active JEROMY [facility] Via raquel disorders dependence, DO Rasheeda DELCID (9 sources.) cigarettes, Hospital - uncomplicated [place] Translations: ([address]) [ TOBACCO USE DISORDER] Other nervous Numbness of Episodic Active IWONA Kruse [facility] system hand [facility] disorders (3 Translations: [place] sources[place] [ Hand [place] ([address]) numbness, Hand numbness] Other Other Episodic Active JEROMY [facility] Via connective musculoskeleta DO Rasheeda DELCID tissue disease l symptoms Hospital - (2 sources.) referable to [place] limbs ([address]) Unclassified Other Episodic Active IWONA STEWARD Commu nity (6 sources.) nonspecific [facility] abnormal of [place] finding of [place] ([address]) lung field Translations: [ - Mass of lung R91.8, - Mass of lung R91.8] Other bone Other Episodic Active JAMES SIDDIQUI [facility] Via disease and specified Rasheeda musculoskeleta disorders of Hospital - l deformities bone density [place] (3 sources.) and structure, ([address]196) left lower leg Other bone Other Episodic Active JAMES SIDDIQUI [facility] Via disease and specified Rasheeda musculoskeleta disorders of Hospital - l deformities bone density [place] (3 sources.) and structure, (58248) right lower leg Residual Other Episodic Active SUSAN [facility] Via codes; specified Rasheeda ROBERSON unclassified postprocedural DC Hospital - (1 source.) states [place] ([address]) Spondylosis; Other Chronic Active JOHN KOHLER [facility] Via intervertebral spondylosis Rasheeda disc with Hospital - disorders; radiculopathy, [place] other back lumbar region (31496) problems (3 sources.) External cause Overexertion Episodic Active SUSAN [facility] Via codes: from strenuous Rasheeda ROBERSON Natural/enviro movement or MD Hospital - nment (1 load, initial [place] source.) encounter (01700) Other Pain in left Episodic Active CARMEN [facility] Via connective arm MD Rasheeda LOAIZA tissue disease Hospital - (3 sources.) [place] ([address]) Other nervous Paresthesia of Episodic Active CARMEN [facility] Via system skin MD Rasheeda LOAIZA disorders (2 Hospital - sources.) [place] ([address]) Other lower Personal Episodic Active S[facility]AN [facility] Via respiratory history of Rasheeda ROBERSON disease (5 pneumonia Hospital - sources.) (recurrent) [place] ([address]) Other lower Shortness of Episodic Active SHERICE CAROLINA Not Available respiratory breath (41947) disease (1 source.) Other lower Solitary Episodic Active CARMEN [facility] Via respiratory pulmonary MD Rasheeda LOAIZA disease (2 nodule Hospital - sources.) [place] ([address]) Osteoarthritis Unilateral Chronic Active JOHN KOHLER [facility] V ia (3 sources.) primary [facility] osteoarthritis Hospital - , left knee [place] ([address]) Past or Other Problems Problem Normalized Date of Normalized Normalized Provider Fac ility Classification Problem(s) Problem Problem Problem Sta tus Onset/Resoluti Duration on NEGATED Other no information no information no name Not Available no specified (69545) information (4 postprocedural sources.) states Unclassified Overexertion no information no information no name Not Available (3 sources.) from strenuous (85017) movement or load, initial encounter Procedures Procedure Normalized Procedure Procedure Result Performer Facility Date 09-19-2017 Chest x-ray no information no name (no phone) [facility] (59408) 09-19-2017 Hemoglobin (HGB) no information no name (no phone) [facility] (97148) Immunizations Normalized Immunization Date Notes Care Provider Facili ty Immunization Vaccination no information JAMES SIDDIQUI [address] Via [facility] Translations: [ [place] ([address]) vaccine] Results Test Name Value Interpretation Reference Range Date Time Fa cility (Normalized) (Normalized) (Medline Reference) a1c (in house) on null HbA1c 6.9 % (no code) 3.6 - 5.7 % [facility] (74234) A1C (IN HOUSE) 0762 (no code) [facility] (96827) A1C (IN HOUSE) 05/2019 (no code) [facility] (81766) No panel information on null Sodium no information (no code) Via [facility] (21051) No panel information on 2020-01-31 Exp date 10/2021 (no code) [facility] (40104) Lot 6.8~6.9~[id number] (no code) [facility] (72270) No panel information on 2019-05-14 Free T4 1.2 ng/dL (N) 0.9 - 2.2 ng/dL [facility] [Mass/Vol] [facility] (02644) T3 [Mass/Vol] 156 ng/dL (N) 100 - 200 ng/dL [facility] (22116) Thyroglobulin Ab [IU]/mL (N) 0 - 20 [IU]/mL [facility] (33034) TPO Ab Qn 2 [IU]/mL (N) 0 - 35 [IU]/mL [facility] (52794) TSH Qn 0.91 m[IU]/L (N) 0.4 - 4 m[IU]/L [facility] (29524) No panel information on 2018-02-16 Control no information (no code) [facility] (89476) Exp date 03/24/2018 (no code) [facility] (45767) Lot # [id number] (no code) [facility] (47297) No panel information on 2018-01-28 Exp date no information (no code) [facility] (35751) No panel information on 2018-01-01 MDMA [id number]~06/05 (no code) [facility] 19~+~Negative~[facility] Negative~Negativ (29506) e~POSITIVE~Negat karen~Negative~Neg ative~POSITIVE~N egative~Negative ~Negative No panel information on 2016-12-14 Albumin 4.3 g/dL (no code) 3.4 - 5.4 g/dL 12-14-2016 Not Seble ilable [Mass/Vol] 07:560500 (68067) Albumin/Globulin 1.7 {ratio} (no code) 1 - 2.5 {ratio} 7 Not Available [Mass ratio] 07:560 (58006) ALP [Catalytic 130 U/L (H) 44 - 147 U/L 12-14-2016 Not Available activity/Vol] 07:560 (27066) ALT [Catalytic 30 U/L (no code) 4 - 40 U/L 12-14-2016 Not Av ailable activity/Vol] 07:560500 (83631) AST [Catalytic 29 U/L (no code) 10 - 34 U/L 12-14-2016 Not A vailable activity/Vol] 07:560500 (91398) Basophils (Bld) 0.0 10*3/uL (no code) 0 - 0.3 10*3/uL 12-14-2016 Not Available [#/Vol] 08:060500 (47327) Basophils/100 0 % (no code) 0.5 - 1 % 12-14-2016 Not Avai lable WBC (Bld) 08:060500 (39619) Bilirubin mg/dL (no code) 0.1 - 1.2 mg/dL 12-14-2016 Not Av ailable [Mass/Vol] 07:560500 (41766) Calcium 9.2 mg/dL (no code) 8.5 - 10.2 mg/dL 12-14-2016 Not A vailable [Mass/Vol] 07:560500 (72904) Chloride 98 mmol/L (no code) 95 - 106 mmol/L 12-14-2016 Not Av ailable [Moles/Vol] 07:490500 (29245) CO2 [Moles/Vol] 26 mmol/L (no code) 23 - 29 mmol/L 12-14-2016 N ot Available 07:56 (09890) Creatinine 0.77 mg/dL (no code) 12-14-2016 Not Available [Mass/Vol] 07:560500 (31478) Eosinophils 0.2 10*3/uL (no code) 0.05 - 0.5 12-14-2016 Not Seble ilable (Bld) [#/Vol] 10*3/uL 08:060500 (05844) Eosinophils/100 2 % (no code) 1 - 4 % 12-14-2016 Not Av ailable WBC (Bld) 08:060500 (08283) Erythrocyte 14.2 % (no code) 11.6 - 14.6 % 12-14-2016 Not Av ailable distribution 08:060500 (75285) width (RBC) [Ratio] GFR/1.73 sq M 100 (no code) 90 - 120 12-14-2016 Not Avai lable predicted among mL/min/{1.73_m2} mL/min/{1.73_m2} 07:560500 (56943) blacks MDRD (S/P/Bld) [Vol rate/Area] GFR/1.73 sq M 87 (no code) 90 - 120 12-14-2016 Not Avai lable predicted among mL/min/{1.73_m2} mL/min/{1.73_m2} 07:560500 (23970) non-blacks MDRD (S/P/Bld) [Vol rate/Area] Globulin (S) 2.6 g/dL (no code) 2 - 3.5 g/dL 12-14-2016 Not Av ailable [Mass/Vol] 07:56-0500 (20529) Glucose 148 mg/dL (H) 60 - 125 mg/dL 12-14-2016 Not Seble ilable [Mass/Vol] 07:59-0500 (30759) Hematocrit (Bld) 45.6 % (no code) 36.1 - 50.3 % 12-14-2016 N ot Available [Volume 08:060500 (28251) fraction] Hemoglobin (Bld) 14.9 g/dL (no code) 12.1 - 17.2 g/dL 12-14-2016 Not Available [Mass/Vol] 08:06-0500 (87949) Immature 0.0 10*3/uL (no code) 0 - 0.2 10*3/uL 12-14-2016 Not Available granulocytes 08:060500 (37112) (Bld) [#/Vol] Immature 0 % (no code) 0 - 0.5 % 12-14-2016 Not Availabl e granulocytes/100 08:060500 (05184) WBC (Bld) Lymphocytes 3.3 10*3/uL (H) 0.9 - 2.9 12-14-2016 Not Avai lable (Bld) [#/Vol] 10*3/uL 08:06-0500 (61308) Lymphocytes/100 34 % (no code) 20 - 40 % 12-14-2016 Not Av ailable WBC (Bld) 08:060500 (57437) MCH (RBC) 29.5 pg (no code) 27 - 31 pg 12-14-2016 Not Availab le [Entitic mass] 08:06-0500 (79696) MCHC (RBC) 32.7 g/dL (no code) 32 - 36 g/dL 12-14-2016 Not Avai lable [Mass/Vol] 08:06-0500 (66557) MCV (RBC) 90 fL (no code) 80 - 100 fL 12-14-2016 Not Availa ble [Entitic vol] 08:060500 (88126) Monocytes (Bld) 0.7 10*3/uL (no code) 0.3 - 0.9 12-14-2016 Not Available [#/Vol] 10*3/uL 08:060500 (72345) Monocytes/100 7 % (no code) 2 - 8 % 12-14-2016 Not Avai lable WBC (Bld) 08:060500 (24329) Neutrophils 5.4 10*3/uL (no code) 1.7 - 7 10*3/uL 12-14-2016 No t Available (Bld) [#/Vol] 08:060500 (27625) Neutrophils/100 57 % (no code) 40 - 60 % 12-14-2016 Not Av ailable WBC (Bld) 08:060500 (14268) Platelets (Bld) 303 10*3/uL (no code) 150 - 450 12-14-2016 Not Available [#/Vol] 10*3/uL 08:060500 (68073) Potassium 4.6 mmol/L (no code) 3.7 - 5.2 mmol/L 12-14-2016 Not Available [Moles/Vol] 07:49-0500 (43463) Protein 6.9 g/dL (no code) 6.4 - 8.3 g/dL 12-14-2016 Not Seble ilable [Mass/Vol] 07:56-0500 (55962) RBC (Bld) 5.05 10*6/uL (no code) 4.2 - 6.1 12-14-2016 Not Avail able [#/Vol] 10*6/uL 08:060500 (98691) Sodium 138 mmol/L (no code) 135 - 145 mmol/L 12-14-2016 Not Available [Moles/Vol] 07:49-0500 (40317) Urea nitrogen 10 mg/dL (no code) 7 - 20 mg/dL 12-14-2016 Not A vailable [Mass/Vol] 07:56-0500 (39525) Urea 13 mg/mg (no code) 6 - 22 mg/mg 12-14-2016 Not Avail able nitrogen/Creatin 07:56-0500 (43625) ine [Mass ratio] WBC (Bld) 9.7 10*3/uL (no code) 3.5 - 10.5 12-14-2016 Not Avail able [#/Vol] 10*3/uL 08:060500 (55658) Vital Signs Vital Sign Value Interpretation Reference Date Time Care Prov ider Facility (Normalized) (Normalized) Range BMI (Body Mass 24.66 kg/m2 (no code) 15 - 25 kg/m2 06-09-2018 Erasmo MORENO [facility]) 15:40-0400 10258 [facility] (18466) BMI (Body Mass 25.52 kg/m2 (no code) 15 - 25 kg/m2 05-05-2018 M TAYLOR STEWARD Community Index) 11:00-0400 39466 [facility] (82207) BMI (Body Mass 26.09 kg/m2 (no code) 15 - 25 kg/m2 02-16-2018 W SILAS SIDDIQUI Community Index) 17:40-0400 33942 [facility] (36920) BMI (Body Mass 24.73 kg/m2 (no code) 15 - 25 kg/m2 01-01-2018 W JORGELUIS ENRIQUEDavid CHEN Community Index) 13:40-0500 48623 [facility] (27331) BMI (Body Mass 27 kg/m2 (no code) 15 - 25 kg/m2 09-19-2017 WILLI AM CHEN Community Index) 16:00-0400 00460 [facility] (93500) Body 98.1 [degF] (no code) 97.8 - 99.0 06-09-2018 TARI QUINONES [facility] Temperature [degF] 15:40-0400 44096 [facility] (94581) Body 98.4 [degF] (no code) 97.8 - 99.0 05-05-2018 IWONA HILL [facility] Temperature [degF] 11:00-0400 45530 [facility] (51490) Body 98.1 [degF] (no code) 97.8 - 99.0 02-16-2018 JAMES FORD Community Temperature [degF] 17:40-0400 22533 [facility] (20552) Body 98.2 [degF] (no code) 97.8 - 99.0 01-01-2018 JAMES FORD Community Temperature [degF] 13:40-0500 37060 [facility] (02406) Body 98.2 [degF] (no code) 97.8 - 99.0 09-19-2017 JAMES CAVANAUGH [facility] Temperature [degF] 16:00-[address] [place] [address] (30781) Height 162.56 cm (no code) cm 06-09-2018 TARI [facility] 15:40-[address] [place] [address] (73247) Height 162.56 cm (no code) cm 05-05-2018 [facility] 11:00-[address] [place] [address] (05261) Height 162.56 cm (no code) cm 02-16-2018 JAMES [facility] 17:40-[address] [place] [address] (86239) Height 162.56 cm (no code) cm 01-01-2018 JAMES [facility] 13:40-[address] [place] [address] (63390) Height 162.56 cm (no code) cm 09-19-2017 JAMES [facility] 16:00-[address] [place] [address] (69828) Pulse Oximetry 98 % (no code) 95 - 100 % 05-05-2018 [facility] 11:00-[address] [place] [address] (58031) Weight 65.18 kg (no code) kg 06-09-2018 TARI JOSH [facility] 15:40-[address] [place] [address] (50928) Weight 67.45 kg (no code) kg 05-05-2018 [facility] 11:00-[address] [place] [address] (54815) Weight 68.95 kg (no code) kg 02-16-2018 JAMES [facility] 17:40-[address] [place] [address] (48792) Weight 65.36 kg (no code) kg 01-01-2018 JAMES [facility] 13:40-[address] [place] [address] (38073) Weight 71.35 kg (no code) kg 09-19-2017 JAMES [facility] 16:00-0400 93174 [facility] (28632) Interventions No Information Plan of Treatment The data below is from unstructured sources Discharge Date 10/06/16 9:58pm Disposition 01 HOME, SELF-CARE Condition at Discharge Improved Instructions/Education Provided Hugo calvert (DC) Single Pulmonary Nodule Prescriptions See Medication Section Referrals JEROMY DELCID [facility] Physician Additional Instructions/Education Al l discharge instructions reviewed with patient and/or family. Voiced understanding. Follow-up with Dr. Delcid tomorraddy for recheck and further evaluation and referral to stove refinisher for evaluation including possible stress test. Return for worse pain, fever, vomiting, weakness, breathing problems or other concerns as needed. Continue home medications as directed. Discharge Date 10/08/16 9:49pm Disposition 01 HOME, SELF-CARE Condition at Discharge Improved Instructions/Education Provided Ches t Pain (DC) Prescriptions See Medication Section Referrals JEROMY DELCID [facility] Phys[facility] Additional Instructions/Education Al l discharge instructions reviewed with patient and/or family. Voiced understanding. Follow-up with Dr. Delcid tomorrow for recheck and further evaluation and referral to stove refinisher for evaluation including possible stress test. Return for worse pain, fever, vomiting, weakness, breathing problems or other concerns as needed. Continue home medications as directed. Discharge Date 06/10/14 9:50am Disposition 01 HOME, SELF-CARE Instructions/Education Provided DISC HARGE Forms Provided Follow-Up Appts. Prescriptions See Medications Sectio n Activity Details Follow Up 4 Weeks Reason:hand pain a nd xiety Discharge Date 05/13/18 5:46pm Disposition 01 HOME, SELF-CARE Condition at Discharge Improved Instructions/Education Provided Low Back Pain (DC) Prescriptions See Medication Section Referrals JAMES SIDDIQUI Order Date: Primary Care Physician Address: [address] [address] Additional Instructions/Education Co ntinue to take ibuprofen up to 600 mg every 6 hours and Tylenol (acetaminophen) up to 1000 mg every 6 ho urs as primary pain control. For pain not controlled by these medications, use Ultram (tramadol) as prescribed. Gentle heat such as a heating pad on low may also help relax the muscles. Follow-up with your primary care provider if not improving. Avoid heavy lifting and unnecessary bending until pain resolves. All discharge instructions reviewed with patient and/or family. Voiced understanding. Discharge Date 05/18/18 3:58am Disposition 01 HOME, SELF-CARE Condition at Discharge Stable Instructions/Education Provided Seas onal Allergies (DC) Prescriptions See Medication Section Referrals JAMES SIDDIQUI Order Date: Primary Care Physician Address: [address] [id number] Additional Instructions/Education Pi ck up a bottle of Claritin or Zyrtec and take one tablet daily. Follow up with your primary care doctor this week. If you have a difficult time breathing, wheezing or whistling sound when he breathes or if you have fevers above 102.5 Fahrenheit you should follow-up in the ER. All discharge instructions reviewed with patient and/or family. Voiced understanding. Activity Details Follow Up prn Reason: Activity Details Follow Up prn Reason:cough, sore thr oat Activity Details Follow Up prn Reason: Goals No Information Social History No Information Functional Status The data below is from unstructured sources Query Response Date Tadeo rded Patient Orientation Person Place Time Situation June 10, 2014 10:28am Comprehension Ability Understands Co ncepts June 09, 2014 8:00pm Mental Status No Information Encounters Encounter Normalized Encounter Encounter Diagnosis Care Provi azam Organization Date Type 06-09-2018 (SD) Same Day Dermatitis, TARI MORENO (no [facility] - unspecified phone) (no phone) 06-09-2018 - 06-09-2018 05-18-2018 Emergency department no information SHERICE FIGUEROA Work no organization name - patient visit (no phone ) 05-18-2018 05-13-2018 Emergency department no information SUSAN WHITTEN no organization name - patient visit Work Phone: (no phone) 05-13-2018 SUSAN ROBERSON 05-13-2018 Emergency department no information no name (no rebecca ne) no organization name - patient visit (no phone) 05-13-2018 10-08-2016 Emergency department no information no name (no rebecca ne) no organization name - patient visit (no phone) 10-08-2016 10-06-2016 Emergency department no information no name (no rebecca ne) no organization name - patient visit (no phone) 10-06-2016 05-18-2018 Patient encounter no information no name (no phone) no organization name (no phone) 05-13-2018 Patient encounter no information no name (no phone) no organization name (no phone) NEGATED Patient encounter no information no name (no phone) no organization name 05-05-2018 (no phone) 02-16-2018 Patient encounter no information no name (no phone) no organization name (no phone) 01-28-2018 Patient encounter no information no name (no phone) no organization name (no phone) 01-01-2018 Patient encounter no information no name (no phone) no organization name (no phone) 01-31-2020 Patient encounter no information (no phone) [facility] (no phone) 10-19-2019 Patient encounter no information no name (no phone) no organization name procedure (no phone) 10-18-2019 Patient encounter no information no name (no phone) no organization name procedure (no phone) 10-01-2019 Patient encounter no information no name (no phone) no organization name procedure (no phone) 09-28-2019 Patient encounter no information no name (no phone) no organization name procedure (no phone) 09-23-2019 Patient encounter no information no name (no phone) no organization name procedure (no phone) 09-20-2019 Patient encounter no information no name (no phone) no organization name procedure (no phone) 06-17-2019 Patient encounter no information no name (no phone) no organization name procedure (no phone) 05-14-2019 Patient encounter no information no name (no phone) no organization name procedure (no phone) 03-10-2019 Patient encounter no information no name (no phone) no organization name procedure (no phone) 02-23-2019 Patient encounter no information no name (no phone) no organization name procedure (no phone) 12-30-2018 Patient encounter no information no name (no phone) no organization name procedure (no phone) Medical Equipment No Information Payers No Information Advance Directives Directive Response Recor ded Date/Time Advance Directives No 7:45pm Health Care Power of Psychology Technician No 10/06/16 7:45pm Organ Donor No 10/06/16 7:45pm Resuscitation Status Full Code 10/06/16 7:45pm Directive Response Recor ded Date/Time Advance Directives No 7:20pm Health Care Power of Psychology Technician No 10/08/16 7:20pm Organ Donor No 10/08/16 7:20pm Resuscitation Status Full Code 10/08/16 7:20pm Directive Response Recor ded Date/Time Advance Directives No 7:00am Health Care Power of Psychology Technician No 06/09/14 7:00am Organ Donor No 06/09/14 7:00am Resuscitation Status Full Code 06/09/14 7:00am Resuscitation Status Full Code 06/09/14 7:11am Directive Response Recor ded Date/Time Advance Directives No 4:55pm Health Care Power of Psychology Technician No 05/13/18 4:55pm Organ Donor No 05/13/18 4:55pm Resuscitation Status Full Code 05/13/18 4:55pm Directive Response Recor ded Date/Time Advance Directives No 3:35am Health Care Power of Psychology Technician No 05/18/18 3:35am Organ Donor No 05/18/18 3:35am Resuscitation Status Full Code 05/18/18 3:35am Discharge Instructions No hospital discharge instructions.No hospital discharge instructions. Patient Instructions Physician Instructions Plan of Care/Instructions/FU: patient to take her ranitidine. Patient to take aspirin 81 mg daily. 2 office next . Activity as tolerated Activity as Tolerated: Yes Dicharge Diet: No Restrictions, Regular Diet No hospital discharge instruction information available.No hospital discharge instruction information available. Additional Source Comments This clinical document has been generated using [employer] software that has been certified by the Office of the National Coordinator for Health Information Technology (ONC 15.99.04.3023.Diam.31.00.0.778076) and the National Committee for Brace Maker (NCQA, as an eMeasure certified technology). FOR RECORDS PERTAINING TO PATIENTS WHO ARE OR HAVE BEEN ENROLLED IN A CHEMICAL D EPENDENCY/SUBSTANCE ABUSE PROGRAM, SOME INFORMATION MAY BE OMITTED. This clinica l summary was aggregated from multiple sources. Caution should be exercised in using it in the provision of clinical care. This summary normalizes information from multiple sources, and as a consequence, information in this document may ma terially change the coding, format and clinical context of patient data. In keith tion, data may be omitted in some cases. CLINICAL DECISIONS SHOULD BE BASED ON T HE PRIMARY CLINICAL RECORDS. [employer] provides no warranty or guara ntee of the accuracy or completeness of information in this document.The followi information is based on time limited clinical information UNRECOGNIZED CONTENT PROVIDED BELOW FOR UNRECOGNIZED SECTION MEDICAL (GENERAL) HISTORY Type Description Date Medical History anxiety Medical History prediabetes Medical History GERD Surgical History Gallbladder Removal Surgical History Appendectomy Surgical History Tonsilectomy Hospitalization History Surgery/child marlon h UNRECOGNIZED CONTENT PROVIDED BELOW FOR UNRECOGNIZED SECTION REASON FOR VISIT DHPR-lraemiawuEbkh-bcqxrbm,[place], itchy all over body
--- OUTSIDE RECORDS SUMMARY | 2020-02-10 01:06 | XMS REPORT ---
Author Author Amada STEWARD Organization [facility] Address [address] [place] [address] Care Team Providers Care Quill Reamer Name Role Phone IWONA STEWARD Unavailable PROBLEMS Type Condition ICD9-CM Code [id number] Code Onset Dates Condition S tatus SNOMED Code Problem Anxiety F41.9 Active 41363524 Problem Gastroesophageal reflux disease without esophagitis K21.9 Active 217110133 Problem Prediabetes R73.03 Active 47597011 2 Problem COPD (chronic obstructive pulmonary disease) wit h chronic bronchitis J44.9 Active 66656250 Problem Chronic obstructive pulmonary disease, unspecified COPD ty pe J44.9 Active 95274182 Problem Hand numbness R20.0 Active 017667 004 Problem Nocturia more than twice per night R35.1 Active 783660924 Problem Elevated cholesterol with elevated triglycerides E 78.2 Active 671426700 Problem COPD mixed type J44.9 Active 1364 5005 ALLERGIES Substance Reaction Event Type Date Status Etodolac hives Drug Allergy Apr, Active Codeine Sulfate Hives Drug Allergy Apr, Active Clonidine HCl thorat swelling Drug Allergy Apr, Active ENCOUNTERS Encounter Location Date Diagnosis [facility] [address] [id number] [address] [place] [id number] May, Dermatitis L30.9 [facility] [address] [id number] [address] [place] [phone] Apr, COPD (chronic obstructive pu lmonary disease) with chronic bronchitis J44.9 [facility] [address] [id number] [place] [phone] Apr, Allergic rhinitis, unspecifi ed seasonality, unspecified trigger J30.9 ; Sore throat J02.9 and Chronic obstructive pulmonary disease, unspecified COPD type J44.9 [facility] [address] [address] 02 Feb, 2018 Gastroesophageal reflux dise ase without esophagitis K21.9 [place] [address] [address] 27 Jan, 2018 Anxiety F41.9 [place] [address] [address] 14 Jan, 2018 Acute exacerbation of chroni c obstructive bronchitis J44.1 [place] [address] [address] 15 Dec, 2017 Frequent headaches R51 [place] [address] [address] 13 Dec, 2017 Anxiety F41.9 [place] [address] [address] Dec, Intractable migraine without aura and without status migrainosus G43.019 [place] [address] [address] Oct, Intractable migraine without aura and without status migrainosus G43.019 [place] [address] [address] 14 Sep, 2017 Elevated cholesterol with el evated triglycerides E78.2 [place] [address] [address] 13 Sep, 2017 Intractable migraine without aura and without status migrainosus G43.019 and Anxiety F41.9 [place] [address] [address] 13 Sep, 2017 Anxiety F41.9 ; COPD (chroni c obstructive pulmonary disease) with chronic bronchitis J44.9 ; Mass of lung R91.8 ; Family history of diabetes mellitus Z83.3 and Family history of early CAD Z82.49 [place] [address] [address] 03 Sep, 2017 Anxiety F41.9 ; COPD (chroni c obstructive pulmonary disease) with chronic bronchitis J44.9 ; Mass of lung R91.8 ; Family history of diabetes mellitus Z83.3 and Family history of early CAD Z82.[address] [address] Jul, Anxiety F41.[address] [address] Apr, Anxiety F41.[address] [address] Feb, Prediabetes R73.03 ; Gastroe sophageal reflux disease without esophagitis K21.9 ; Anxiety F41.9 and COPD mixed type J44.[address] [address] Dec, [address] [address] Nov, Nocturia more than twice per night R35.1 ; Hand numbness R20.0 ; Encounter to establish care Z76.89 ; Gastroesophageal reflux disease without esophagitis K21.9 ; Anxiety F41.9 and Prediabetes R73.03 IMMUNIZATIONS No Known Immunizations SOCIAL HISTORY Never Assessed REASON FOR VISIT sore throat for four days now and taking multiple cough drops. PT also has a cou gh with no mucus-[place] PLAN OF CARE Activity Details Follow Up prn Reason:cough, sore throa t VITAL SIGNS Height 64.0 in 2018-05-05 Weight 148.7 lbs 2018-05-05 Temperature 98.4 degrees Fahrenheit 2018-05-05 Heart Rate 78 bpm 2018-05-05 Respiratory Rate 18 2018-05-05 Oximetry 98 % 2018-05-05 BMI 25.52 kg/m2 2018-05-05 Blood pressure systolic 112 mmHg 2018-05-05 Blood pressure diastolic 70 mmHg 2018-05-05 MEDICATIONS Medication Instructions Dosage Frequency Start Date End Date Duration S tatus ProAir HFA 108 (90 Base) MCG/ACT Inhalation every 4 hrs 2 puffs as needed 4h Feb, Active PredniSONE 20 mg Orally Once a day 2 tablets 24h 05 days Active Pantoprazole Sodium 40 mg Orally Once a day 1 tablet 24h Feb, 8 90 days Active Combivent Respimat 20-100 MCG/ACT Inhalation Four times a day 1 puf f 6h Apr, 28 days Active Ipratropium [place] HFA 17 MCG/ACT Inhalation Four times a day 2 pu ffs 6h Apr, May, 28 days Active Ibuprofen 200 mg Orally Three times a day 1 tablet with food or milk as needed 8h Active Propranolol HCl 20 MG Orally Twice a day 1 tablet 12h 15 Dec, 2017 30 day(s) Active RESULTS No Results PROCEDURES No Known procedures INSTRUCTIONS MEDICATIONS ADMINISTERED No Known Medications MEDICAL (GENERAL) HISTORY Type Description Date Medical History anxiety Medical History prediabetes Medical History GERD Surgical History Gallbladder Removal Surgical History Appendectomy Surgical History Tonsilectomy Hospitalization History Surgery/child
--- OUTSIDE RECORDS SUMMARY | 2020-02-10 01:06 | XMS REPORT ---
Author Author Amada Siddiqi Organization [facility] Address [address] [place] [address] Care Team Providers Care Manager Camp Name Role Phone ELVIS Siddiqi Unavailable PROBLEMS Type Condition ICD9-CM Code [id number] Code Onset Dates Condition S tatus SNOMED Code Problem Anxiety F41.9 Active 10779909 Problem Gastroesophageal reflux disease without esophagitis K21.9 Active 048146693 Problem Prediabetes R73.03 Active 35775254 2 Problem COPD (chronic obstructive pulmonary disease) wit h chronic bronchitis J44.9 Active 71470797 Problem Chronic obstructive pulmonary disease, unspecified COPD ty pe J44.9 Active 59818420 Problem Hand numbness R20.0 Active 085149 004 Problem Nocturia more than twice per night R35.1 Active 931659678 Problem Elevated cholesterol with elevated triglycerides E 78.2 Active 916118161 Problem COPD mixed type J44.9 Active 1364 5005 ALLERGIES Substance Reaction Event Type Date Status Etodolac hives Drug Allergy Jan, Active Codeine Sulfate Hives Drug Allergy Jan, Active Clonidine HCl thorat swelling Drug Allergy Jan, Active ENCOUNTERS Encounter Location Date Diagnosis [place] [address] [place] [id number] [address] [place] [phone] May, [facility] [address] [id number] [address] [place] [phone] Apr, COPD (chronic obstructive pu lmonary disease) with chronic bronchitis J44.9 [facility] [address] [id number] [address] [place] [address] Apr, Allergic rhinitis, unspecifi ed seasonality, unspecified trigger J30.9 ; Sore throat J02.9 and Chronic obstructive pulmonary disease, unspecified COPD type J44.9 [place] [address] [place] [id number] [place] [address] Feb, Gastroesophageal reflux dise ase without esophagitis K21.9 [place] [address] [address] 27 Jan, 2018 Anxiety F41.9 [place] [address] [address] 14 Jan, 2018 Acute exacerbation of chroni c obstructive bronchitis J44.1 [place] [address] [address] 15 Dec, 2017 Frequent headaches R51 [place] [address] [address] Dec, Anxiety F41.9 [place] [address] [address] Dec, Intractable migraine without aura and without status migrainosus G43.019 [place] [address] [address] Oct, Intractable migraine without aura and without status migrainosus G43.019 [place] [address] [address] 14 Sep, 2017 Elevated cholesterol with el evated triglycerides E78.2 [place] [address] [address] 13 Sep, 2017 Intractable migraine without aura and without status migrainosus G43.019 and Anxiety F41.9 [place] [address] [place] [id number] [place] [address] Sep, Anxiety F41.9 ; COPD (chroni c obstructive pulmonary disease) with chronic bronchitis J44.9 ; Mass of lung R91.8 ; Family history of diabetes mellitus Z83.3 and Family history of early CAD Z82.49 [place] [address] [place] [id number] [place] [address] 03 Sep, 2017 Anxiety F41.9 ; COPD (chroni c obstructive pulmonary disease) with chronic bronchitis J44.9 ; Mass of lung R91.8 ; Family history of diabetes mellitus Z83.3 and Family history of early CAD Z82.49 [place] [address] [address] 28 Jul, 2017 Anxiety F41.[address] [address] Apr, Anxiety F41.[address] [address] Feb, Prediabetes R73.03 ; Gastroe sophageal reflux disease without esophagitis K21.9 ; Anxiety F41.9 and COPD mixed type J44.[address] [address] 14 Dec, [address] [address] Nov, Nocturia more than twice per night R35.1 ; Hand numbness R20.0 ; Encounter to establish care Z76.89 ; Gastroesophageal reflux disease without esophagitis K21.9 ; Anxiety F41.9 and Prediabetes R73.03 IMMUNIZATIONS Vaccine Route Administration Date Status DEXAMETHASONE 4MG/ML (PER 1 MG) IM Intramuscular January 28, 2018 Administered DEPO MEDROL 40 MG/ML IM Intramuscular January 28, 2018 Administer ed SOCIAL HISTORY Never Assessed REASON FOR VISIT Sore throat for about a week. reports slimy, yellowish, green sputum at night. R eports sitting up to sleep because of cough and soreness. Reports tessalon perle s do not work. CB[facility]back[facility] PLAN OF CARE Activity Details Follow Up prn Reason: VITAL SIGNS Height 64.0 in 2018-01-28 Weight 153.5 lbs 2018-01-28 Temperature 98.3 degrees Fahrenheit 2018-01-28 Heart Rate 96 bpm 2018-01-28 Respiratory Rate 24 2018-01-28 BMI 26.35 kg/m2 2018-01-28 Blood pressure systolic 108 mmHg 2018-01-28 Blood pressure diastolic 60 mmHg 2018-01-28 MEDICATIONS Medication Instructions Dosage Frequency Start Date End Date Duration S tatus Ibuprofen 200 mg Orally Three times a day 1 tablet with food or milk as needed 8h Active PredniSONE 10 mg Orally once daily, morning with food 4 t ablet x 2 day, then 3 tablets x 2 days, then 2 tablets x 2 days, then 1 tablets x 2 days 30 day(s) Active Azithromycin 250 MG Orally Once a day 2 tablets on day 1, the take 1 tablet day 2-5 24h 5 day(s) Active ProAir HFA 108 (90 Base) MCG/ACT Inhalation every 4 hrs 2 puffs as needed 4h 24 Feb, 2017 Active Propranolol HCl 20 MG Orally Twice a day 1 tablet 12h 15 Dec, 2017 30 day(s) Active RESULTS Name Result Date Reference Range STREP A (IN HOUSE) 2018-01-28 STREP A negative Control + Lot # [id number] Exp date 08/16/2018 PROCEDURES Procedure Date Ordered Result Body Site DEPO MEDROL 40 MG/ML January 28, 2018 THER/PROPH/DIAG INJ, SC/IM January 28, 2018 STREP A ASSAY W/OPTIC January 28, 2018 DEXAMETHASONE 4MG/ML (PER 1 MG) January 28, 2018 INSTRUCTIONS MEDICATIONS ADMINISTERED No Known Medications MEDICAL (GENERAL) HISTORY Type Description Date Medical History anxiety Medical History prediabetes Medical History GERD Surgical History Gallbladder Removal Surgical History Appendectomy Surgical History Tonsilectomy Hospitalization History Surgery/child
--- OUTSIDE RECORDS SUMMARY | 2020-02-10 01:06 | XMS REPORT | Continuity of Care Document ---
Author Organization Unknown Address Unknown Phone Unavailable Allergies Active Description Code Type Severity Reaction Onset Reported/Identified Relationship to Patient Clinical Status Yes codeine [id number] Drug Allergy Mild HIVES 03/23/2009 Medications There is no data. Problems Date Dx Coded Attending Type Code Diagnosis Diagnosed By 10/31/2011 Ot 305.50 OPI OID ABUSE- UNSPEC 10/31/2011 Ot 789.06 ABD OMINAL PAIN, EPIGASTRIC 12/12/2011 Ot 789.06 ABD OMINAL PAIN, EPIGASTRIC 06/10/2014 JEROMY DELCID DO Ot 305.1 TOBACCO USE DISORDER 06/10/2014 JEROMY DELCID DO Ot 729.89 MUSCSKEL SYMPT LIMB NEC 06/10/2014 JEROMY DELCID DO Ot 781.94 FACIAL WEAKNESS 06/10/2014 JEROMY DELCID DO Ot 782.0 SKIN SENSATION DISTURB 10/06/2016 CARMEN LOAIZA MD Ot F17.210 NICOTINE DEPENDENCE, CIGARETTES, UNCOMPL 10/06/2016 CARMEN LOAIZA MD Ot I25.10 ATHSCL HEART DISEASE OF [place] CORONARY 10/06/2016 CARMEN LOAIZA MD Ot M79.602 PAIN IN LEFT ARM 10/06/2016 CARMEN LOAIZA MD Ot R20.0 ANESTHESIA OF SKIN 10/06/2016 CARMEN LOAIZA MD Ot R20.2 PARESTHESIA OF SKIN 10/06/2016 CARMEN LOAIZA MD Ot R42 DIZZINESS AND GIDDINESS 10/06/2016 CARMEN LOAIZA MD Ot R91.1 SOLITARY PULMONARY NODULE 10/06/2016 CARMEN LOAIZA MD Ot Z79.82 SENIOR CARE (CURRENT) USE OF ASPIRIN 10/08/2016 CARMEN LOAIZA MD Ot F17.210 NICOTINE DEPENDENCE, CIGARETTES, UNCOMPL 10/08/2016 CARMEN LOAIZA MD Ot I25.10 ATHSCL HEART DISEASE OF [place] CORONARY 10/08/2016 CARMEN LOAIZA MD, Ot M79.602 PAIN IN LEFT ARM 10/08/2016 CARMEN LOAIZA MD, Ot R20.0 ANESTHESIA OF SKIN 10/08/2016 CARMEN LOAIZA MD, Ot R20.2 PARESTHESIA OF SKIN 10/08/2016 CARMEN LOAIZA MD, Ot R42 DIZZINESS AND GIDDINESS 10/08/2016 CARMEN LOAIZA MD, Ot R91.1 SOLITARY PULMONARY NODULE 10/08/2016 CARMEN LOAIZA MD, Ot Z79.82 SENIOR CARE (CURRENT) USE OF ASPIRIN 10/08/2016 CARMEN LOAIZA MD, Ot F41.9 ANXIETY DISORDER, UNSPECIFIED 10/08/2016 CARMEN LOAIZA MD, Ot R07.9 CHEST PAIN, UNSPECIFIED 10/08/2016 CARMEN LOAIZA MD, Ot Z79.82 LINING IRONER (CURRENT) USE OF ASPIRIN 05/13/2018 SUSAN ROBERSON MD, Ot F17.210 NICOTINE DEPENDENCE, CIGARETTES, UNCOMPL 05/13/2018 SUSAN ROBERSON MD, Ot J44.9 CHRONIC OBSTRUCTIVE PULMONARY DISEASE, U 05/13/2018 SUSAN ROBERSON MD, Ot K21.9 GASTRO-ESOPHAGEAL REFLUX DISEASE WITHOUT 05/13/2018 SUSAN ROBERSON MD, Ot M54.5 LOW BACK PAIN 05/13/2018 SUSAN ROBERSON MD, Ot X50.0XXA OVEREXERTION FROM STRENUOUS MOVEMENT OR 05/13/2018 SUSAN ROBERSON MD, Ot Z87.01 PERSONAL HISTORY OF PNEUMONIA (RECURRENT 05/13/2018 SUSAN ROBERSON MD, Ot Z88.5 ALLERGY STATUS TO NARCOTIC AGENT STATUS 05/13/2018 SUSAN ROBERSON MD, Ot Z90.49 ACQUIRED ABSENCE OF OTHER SPECIFIED PART 05/13/2018 SUSAN ROBERSON MD, Ot Z98.890 OTHER SPECIFIED POSTPROCEDURAL STATES 05/14/2018 SUSAN ROBERSON MD, Ot F17.210 NICOTINE DEPENDENCE, CIGARETTES, UNCOMPL 05/14/2018 SUSAN ROBERSON MD, Ot J44.9 CHRONIC OBSTRUCTIVE PULMONARY DISEASE, U 05/14/2018 SUSAN ROBERSON MD, Ot K21.9 GASTRO-ESOPHAGEAL REFLUX DISEASE WITHOUT 05/14/2018 SUSAN ROBERSON MD Ot M54.5 LOW BACK PAIN 05/14/2018 SUSAN ROBERSON MD Ot X50.0XXA OVEREXERTION FROM STRENUOUS MOVEMENT OR 05/14/2018 SUSAN ROBERSON MD Ot Z87.01 PERSONAL HISTORY OF PNEUMONIA (RECURRENT 05/14/2018 SUSAN ROBERSON MD Ot Z88.5 ALLERGY STATUS TO NARCOTIC AGENT STATUS 05/14/2018 SUSAN ROBERSON MD Ot Z90.49 ACQUIRED ABSENCE OF OTHER SPECIFIED PART 05/14/2018 SUSAN ROBERSON MD Ot Z98.890 OTHER SPECIFIED POSTPROCEDURAL STATES 05/20/2018 SHERICE FIGUEROA MD Ot F17.210 NICOTINE DEPENDENCE, CIGARETTES, UNCOMPL 05/20/2018 SHERICE FIGUEROA MD Ot J02. 9 ACUTE PHARYNGITIS, UNSPECIFIED 05/20/2018 SHERICE FIGUEROA MD Ot J44. 9 CHRONIC OBSTRUCTIVE PULMONARY DISEASE, U 05/20/2018 SHERICE FIGUEROA MD Ot K21. 9 GASTRO-ESOPHAGEAL REFLUX DISEASE WITHOUT 05/20/2018 SHERICE FIGUEROA MD Ot R06. 02 SHORTNESS OF BREATH 05/20/2018 SHERICE FIGUEROA MD Ot Z87. 01 PERSONAL HISTORY OF PNEUMONIA (RECURRENT 05/20/2018 SHERICE FIGUEROA MD Ot Z88. 5 ALLERGY STATUS TO NARCOTIC AGENT STATUS 05/20/2018 SHERICE FIGUEROA MD Ot Z90. 49 ACQUIRED ABSENCE OF OTHER SPECIFIED PART 05/20/2018 SHERICE FIGUEROA MD Ot Z98.890 OTHER SPECIFIED POSTPROCEDURAL STATES 10/01/2019 JAMES SIDDIQUI Ot M81.0 AGE-RELATED OSTEOPOROSIS W/O CURRENT PAT 10/01/2019 JAMES SIDDIQUI Ot M85.861 OT DISRD OF BONE DENSITY AND STRUCTURE, 10/01/2019 JAMES SIDDIQUI Ot M85.862 OT DISRD OF BONE DENSITY AND STRUCTURE, 10/01/2019 JAMES SIDDIQUI Ot Z78.0 ASYMPTOMATIC MENOPAUSAL STATE 10/13/2019 CHEN, JAMES T [employer] Ot M81.0 AGE-RELATED OSTEOPOROSIS W/O CURRENT PAT 10/13/2019 JAMES SIDDIQUI [employer] Ot M85.861 OTH DISRD OF BONE DENSITY AND STRUCTURE, 10/13/2019 CHEN JAMES Austin [employer] Ot M85.862 OTH DISRD OF BONE DENSITY AND STRUCTURE, 10/13/2019 JAMES SIDDIQUI [employer] Ot Z78.0 ASYMPTOMATIC MENOPAUSAL STATE 10/22/2019 JOHN KOHLER [employer] Ot M17. 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 12 UNILATERAL PRIMARY OSTEOARTHRITIS, LEFT 10/25/2019 JOHN KOHLER [employer] Ot M47. 26 OTHER SPONDYLOSIS WITH RADICULOPATHY, KAY 11/01/2019 CHEN JAMES Geovanna [employer] Ot M81.0 AGE-RELATED OSTEOPOROSIS W/O CURRENT PAT 11/01/2019 CHEN JAMES Austin [employer] Ot M85.861 OTH DISRD OF BONE DENSITY AND STRUCTURE, 11/01/2019 CHEN JAMES Austin [employer]PER[employer] Ot M85.862 OTH DISRD OF BONE DENSITY AND STRUCTURE, 11/01/2019 CHEN JAMES Austin [employer] Ot Z78.0 ASYMPTOMATIC MENOPAUSAL STATE 11/01/2019 JOHN KOHLER SUPERVIS[employer] Ot M17. 12 UNILATERAL PRIMARY OSTEOARTHRITIS, LEFT 11/01/2019 JOHN KOHLER SUPERVIS[employer] Ot M47. 26 OTHER SPONDYLOSIS WITH RADICULOPATHY, KAY Procedures There is no data. Results Test Result Range Complete blood count (CBC) with automate d white blood cell (WBC) differential - 10/06/16 19:50 Blood leukocytes automated count (number/volume) 12.8 10*3/uL 4.3-11.0 Blood erythrocytes automated count (number/volume) 4.77 10*6/uL 4.35-5.85 Venous blood hemoglobin measurement (mass/volume) 14.5 g/dL 11.5-16.0 Blood hematocrit (volume fraction) 42 % 35-52 Automated erythrocyte mean corpuscular volume 88 [ foz_us] 80-99 Automated erythrocyte mean corpuscular h emoglobin (mass per erythrocyte) 30 pg 25-34 Automated erythrocyte mean corpuscular h emoglobin concentration measurement (mass/volume) 35 g/dL 32-36 Automated erythrocyte distribution width ratio 13. 0 % 10.0- 14.5 Automated blood platelet count (count/volume) 317 10*3/uL 130-400 Automated blood platelet mean volume measurement 10.0 [foz_us] 7.4-10.4 Automated blood neutrophils/100 leukocytes 51 % 42-75 Automated blood lymphocytes/100 leukocytes 39 % 12-44 Blood monocytes/100 leukocytes 8 % 0-12 Automated blood eosinophils/100 leukocytes 2 % 0-10 Automated blood basophils/100 leukocytes 0 % 0-10 Blood neutrophils automated count (number/volume) 6.5 10*3 1.8-7.8 Blood lymphocytes automated count (number/volume) 4.9 10*3 1.0-4.0 Blood monocytes automated count (number/volume) 1. 0 10*3 0.0-1.0 Automated eosinophil count 0.3 10*3/uL 0 .0-0.3 Automated blood basophil count (count/volume) 0.1 10*3/uL 0.0-0.1 PT panel in platelet poor plasma by coag ulation assay - 10/06/16 19:50 Prothrombin time (PT) in platelet poor plasma by coagu lation assay 11.1 s 12.2-14.7 INR in platelet poor plasma or blood by coagulation as say 0.8 0.8-1.4 Activated partial thromboplastin time (a PTT) in platelet poor plasma bycoagulation assay - 10/06/16 19:50 Activated partial thromboplastin time (a PTT) in platelet poor plasma bycoagulation assay 30 s 24-35 Fibrin D-dimer FEU measurement in platel et poor plasma (mass/volume) - 10/06/16 19:50 Fibrin D-dimer FEU measurement in platelet poor plasma (mass/volume) 0.37 ug/mL 0.00-0.49 Comprehensive metabolic panel - 10/06/16 20:08 Serum or plasma sodium measurement (moles/volume) 138 mmol/L 135-145 Serum or plasma potassium measurement (moles/volume) 4.3 mmol/L 3.6-5.0 Serum or plasma chloride measurement (moles/volume) 107 mmol/L 98-107 Carbon dioxide 21 mmol/L 21-32 Serum or plasma anion gap determination (moles/volume) 10 mmol/L 5-14 Serum or plasma urea nitrogen measurement (mass/volume ) 8 mg/dL 7-18 Serum or plasma creatinine measurement (mass/volume) 1.02 mg/dL 0.60-1.30 Serum or plasma urea nitrogen/creatinine mass ratio 8 NRG Serum or plasma creatinine measurement w ith calculation of estimated glomerular filtration rate 56 NRG Serum or plasma glucose measurement (mass/volume) 151 mg/dL 70-105 Serum or plasma calcium measurement (mass/volume) 8.8 mg/dL 8.5-10.1 Serum or plasma total bilirubin measurement (mass/volu me) 0.2 mg/dL 0.1-1.0 Serum or plasma alkaline phosphatase fred surement (enzymatic activity/volume) 130 U/L 40-136 Serum or plasma aspartate aminotransfera se measurement (enzymatic activity/volume) 33 U/L 5-34 Serum or plasma alanine aminotransferase measurement (enzymatic activity/volume) 31 U/L 0-55 Serum or plasma protein measurement (mass/volume) 6.5 g/dL 6.4-8.2 Serum or plasma albumin measurement (mass/volume) 3.6 g/dL 3.2-4.5 Magnesium - 10/06/16 20:08 Magnesium 2.0 mg/dL 1.8-2.4 Serum or plasma troponin i.cardiac measu rement (mass/volume) - 10/06/16 20:08 Serum or plasma troponin i.cardiac measurement (mass/v olume) < ng/mL <0.30 Myoglobin, serum - 10/06/16 20:08 Myoglobin, serum 20.1 ng/mL 10.0-92.0 Serum or plasma lithium measurement (mol es/volume) - 10/06/16 20:08 BNP level 12.1 pg/mL <100.0 Complete urinalysis with reflex to cultu re - 10/06/16 20:32 Urine color determination YELLOW NRG Urine clarity determination SLIGHTLY CLOUDY NRG Urine pH measurement by test strip 7 5-9 Specific gravity of urine by test strip 1.010 1.016-1.022 Urine protein assay by test strip, semi-quantitative NEGATIVE NEGATIVE Urine glucose detection by automated test strip NE GATIVE NEGATIVE Erythrocytes detection in urine sediment by light micr oscopy NEGATIVE NEGATIVE Urine ketones detection by automated test strip NE GATIVE NEGATIVE Urine nitrite detection by test strip NEGATIVE NEGATIVE Urine total bilirubin detection by test strip NEGA TIVE NEGATIVE Urine urobilinogen measurement by automated test strip (mass/volume) NORMAL NORMAL Urine leukocyte esterase detection by dipstick NEG ATIVE NEGATIVE Automated urine sediment erythrocyte cou nt by microscopy (number/high power field) NONE NRG Automated urine sediment leukocyte count by microscopy (number/high power field) RARE NRG Bacteria detection in urine sediment by light microsco py NEGATIVE NRG Squamous epithelial cells detection in u rine sediment by light microscopy 10-25 NRG Crystals detection in urine sediment by light microsco py NONE NRG Casts detection in urine sediment by light microscopy NONE NRG Mucus detection in urine sediment by light microscopy NEGATIVE NRG Complete urinalysis with reflex to culture NO NRG Renal epithelial cells detection in urin e sediment by light microscopy NONE NRG Complete blood count (CBC) with automate d white blood cell (WBC) differential - 10/08/16 19:38 Blood leukocytes automated count (number/volume) 11.8 10*3/uL 4.3-11.0 Blood erythrocytes automated count (number/volume) 4.62 10*6/uL 4.35-5.85 Venous blood hemoglobin measurement (mass/volume) 13.9 g/dL 11.5-16.0 Blood hematocrit (volume fraction) 41 % 35-52 Automated erythrocyte mean corpuscular volume 88 [ foz_us] 80-99 Automated erythrocyte mean corpuscular h emoglobin (mass per erythrocyte) 30 pg 25-34 Automated erythrocyte mean corpuscular h emoglobin concentration measurement (mass/volume) 34 g/dL 32-36 Automated erythrocyte distribution width ratio 12. 8 % 10.0- 14.5 Automated blood platelet count (count/volume) 287 10*3/uL 130-400 Automated blood platelet mean volume measurement 9.6 [foz_us] 7.4-10.4 Automated blood neutrophils/100 leukocytes 60 % 42-75 Automated blood lymphocytes/100 leukocytes 30 % 12-44 Blood monocytes/100 leukocytes 8 % 0-12 Automated blood eosinophils/100 leukocytes 2 % 0-10 Automated blood basophils/100 leukocytes 0 % 0-10 Blood neutrophils automated count (number/volume) 7.1 10*3 1.8-7.8 Blood lymphocytes automated count (number/volume) 3.5 10*3 1.0-4.0 Blood monocytes automated count (number/volume) 0. 9 10*3 0.0-1.0 Automated eosinophil count 0.2 10*3/uL 0 .0-0.3 Automated blood basophil count (count/volume) 0.0 10*3/uL 0.0-0.1 PT panel in platelet poor plasma by coag ulation assay - 10/08/16 19:38 Prothrombin time (PT) in platelet poor plasma by coagu lation assay 11.5 s 12.2-14.7 INR in platelet poor plasma or blood by coagulation as say 0.9 0.8-1.4 Activated partial thromboplastin time (a PTT) in platelet poor plasma bycoagulation assay - 10/08/16 19:38 Activated partial thromboplastin time (a PTT) in platelet poor plasma bycoagulation assay 29 s 24-35 Fibrin D-dimer FEU measurement in platel et poor plasma (mass/volume) - 10/08/16 19:38 Fibrin D-dimer FEU measurement in platelet poor plasma (mass/volume) < ug/mL 0.00-0.49 Comprehensive metabolic panel - 10/08/16 19:38 Serum or plasma sodium measurement (moles/volume) 140 mmol/L 135-145 Serum or plasma potassium measurement (moles/volume) 4.0 mmol/L 3.6-5.0 Serum or plasma chloride measurement (moles/volume) 108 mmol/L 98-107 Carbon dioxide 22 mmol/L 21-32 Serum or plasma anion gap determination (moles/volume) 10 mmol/L 5-14 Serum or plasma urea nitrogen measurement (mass/volume ) 12 mg/dL 7-18 Serum or plasma creatinine measurement (mass/volume) 0.79 mg/dL 0.60-1.30 Serum or plasma urea nitrogen/creatinine mass ratio 15 NRG Serum or plasma creatinine measurement w ith calculation of estimated glomerular filtration rate > NRG Serum or plasma glucose measurement (mass/volume) 195 mg/dL 70-105 Serum or plasma calcium measurement (mass/volume) 8.8 mg/dL 8.5-10.1 Serum or plasma total bilirubin measurement (mass/volu me) 0.2 mg/dL 0.1-1.0 Serum or plasma alkaline phosphatase fred surement (enzymatic activity/volume) 120 U/L 40-136 Serum or plasma aspartate aminotransfera se measurement (enzymatic activity/volume) 27 U/L 5-34 Serum or plasma alanine aminotransferase measurement (enzymatic activity/volume) 32 U/L 0-55 Serum or plasma protein measurement (mass/volume) 6.3 g/dL 6.4-8.2 Serum or plasma albumin measurement (mass/volume) 3.7 g/dL 3.2-4.5 Magnesium - 10/08/16 19:38 Magnesium 1.8 mg/dL 1.8-2.4 Serum or plasma troponin i.cardiac measu rement (mass/volume) - 10/08/16 19:38 Serum or plasma troponin i.cardiac measurement (mass/v olume) < ng/mL <0.30 Myoglobin, serum - 10/08/16 19:38 Myoglobin, serum 21.4 ng/mL 10.0-92.0 Serum or plasma lithium measurement (mol es/volume) - 10/08/16 19:38 BNP level 11.1 pg/mL <100.0 TSH - 09/29/17 08:45 TSH 1.26 mIU/L 0.40-4.50 T3 TOTAL - 05/14/19 11:10 T3, TOTAL 156 ng/dL 76-181 TSH - 05/14/19 11:10 TSH 0.91 mIU/L 0.40-4.50 Complete blood count (CBC) with automate d white blood cell (WBC) differential - 02/09/20 22:17 Blood leukocytes automated count (number/volume) 13.1 10*3/uL 4.3-11.0 Blood erythrocytes automated count (number/volume) 4.78 10*6/uL 4.35-5.85 Venous blood hemoglobin measurement (mass/volume) 14.6 g/dL 11.5-16.0 Blood hematocrit (volume fraction) 43 % 35-52 Automated erythrocyte mean corpuscular volume 90 [ foz_us] 80-99 Automated erythrocyte mean corpuscular h emoglobin (mass per erythrocyte) 31 pg 25-34 Automated erythrocyte mean corpuscular h emoglobin concentration measurement (mass/volume) 34 g/dL 32-36 Automated erythrocyte distribution width ratio 12. 7 % 10.0- 14.5 Automated blood platelet count (count/volume) 237 10*3/uL 130-400 Automated blood platelet mean volume measurement 9.7 [foz_us] 7.4-10.4 Automated blood neutrophils/100 leukocytes 61 % 42-75 Automated blood lymphocytes/100 leukocytes 27 % 12-44 Blood monocytes/100 leukocytes 11 % 0-12 Automated blood eosinophils/100 leukocytes 1 % 0-10 Automated blood basophils/100 leukocytes 0 % 0-10 Blood neutrophils automated count (number/volume) 8.0 10*3 1.8-7.8 Blood lymphocytes automated count (number/volume) 3.5 10*3 1.0-4.0 Blood monocytes automated count (number/volume) 1. 4 10*3 0.0-1.0 Automated eosinophil count 0.2 10*3/uL 0 .0-0.3 Automated blood basophil count (count/volume) 0.0 10*3/uL 0.0-0.1 Comprehensive metabolic panel - 02/09/20 22:17 Serum or plasma sodium measurement (moles/volume) 138 mmol/L 135-145 Serum or plasma potassium measurement (moles/volume) 3.9 mmol/L 3.6-5.0 Serum or plasma chloride measurement (moles/volume) 103 mmol/L 98-107 Carbon dioxide 24 mmol/L 21-32 Serum or plasma anion gap determination (moles/volume) 11 mmol/L 5-14 Serum or plasma urea nitrogen measurement (mass/volume ) 8 mg/dL 7-18 Serum or plasma creatinine measurement (mass/volume) 0.76 mg/dL 0.60-1.30 Serum or plasma urea nitrogen/creatinine mass ratio 11 NRG Serum or plasma creatinine measurement w ith calculation of estimated glomerular filtration rate > NRG Serum or plasma glucose measurement (mass/volume) 158 mg/dL 70-105 Serum or plasma calcium measurement (mass/volume) 9.4 mg/dL 8.5-10.1 Serum or plasma total bilirubin measurement (mass/volu me) 0.5 mg/dL 0.1-1.0 Serum or plasma alkaline phosphatase frde surement (enzymatic activity/volume) 110 U/L 40-136 Serum or plasma aspartate aminotransfera se measurement (enzymatic activity/volume) 51 U/L 5-34 Serum or plasma alanine aminotransferase measurement (enzymatic activity/volume) 61 U/L 0-55 Serum or plasma protein measurement (mass/volume) 7.2 g/dL 6.4-8.2 Serum or plasma albumin measurement (mass/volume) 4.1 g/dL 3.2-4.5 CALCIUM CORRECTED 9.3 mg/dL 8.5-10.1 Magnesium - 02/09/20 22:17 Magnesium 1.7 mg/dL 1.6-2.4 Serum or plasma amylase measurement (enz ymatic activity/volume) - 02/09/20 22:17 Serum or plasma amylase measurement (enzymatic activit y/volume) 54 U/L 25-125 Lipase - 02/09/20 22:17 Lipase 30 U/L 8-78 Serum or plasma acetaminophen measuremen t (mass/volume) - 02/09/20 22:17 Serum or plasma acetaminophen measurement (mass/volume ) < ug/mL 10-30 Serum or plasma ethanol measurement (mas s/volume) - 02/09/20 22:17 Serum or plasma ethanol measurement (mass/volume) < mg/dL <10 Complete urinalysis with reflex to cultu re - 02/09/20 22:19 Urine color determination YELLOW NRG Urine clarity determination CLEAR NR G Urine pH measurement by test strip 7.0 5-9 Specific gravity of urine by test strip <= 1.016-1.022 Urine protein assay by test strip, semi-quantitative NEGATIVE NEGATIVE Urine glucose detection by automated test strip NE GATIVE NEGATIVE Erythrocytes detection in urine sediment by light micr oscopy 1+ NEGATIVE Urine ketones detection by automated test strip NE GATIVE NEGATIVE Urine nitrite detection by test strip NEGATIVE NEGATIVE Urine total bilirubin detection by test strip NEGA TIVE NEGATIVE Urine urobilinogen measurement by automated test strip (mass/volume) 0.2 mg/dL < = 1.0 Urine leukocyte esterase detection by dipstick NEG ATIVE NEGATIVE Automated urine sediment erythrocyte cou nt by microscopy (number/high power field) NONE NRG Automated urine sediment leukocyte count by microscopy (number/high power field) NONE NRG Bacteria detection in urine sediment by light microsco py NEGATIVE NRG Squamous epithelial cells detection in u rine sediment by light microscopy RARE NRG Crystals detection in urine sediment by light microsco py NONE NRG Casts detection in urine sediment by light microscopy NONE NRG Mucus detection in urine sediment by light microscopy NEGATIVE NRG Complete urinalysis with reflex to culture NO NRG Urine drug screening test - 02/09/20 22: 19 Urine phencyclidine detection by screening method NEGATIVE NEGATIVE Urine benzodiazepines detection by screening method NEGATIVE NEGATIVE Urine cocaine detection NEGATIVE NEGATI VE Urine amphetamines detection by screening method N EGATIVE NEGATIVE Urine methamphetamine detection by screening method NEGATIVE NEGATIVE Urine cannabinoids detection by screening method N EGATIVE NEGATIVE Urine opiates detection by screening method NEGATI VE NEGATIVE Urine barbiturates detection NEGATIVE N EGATIVE Screening urine tricyclic antidepressants detection NEGATIVE NEGATIVE Urine methadone detection by screening method NEGA TIVE NEGATIVE Urine oxycodone detection NEGATIVE NEGA TIVE Urine propoxyphene detection NEGATIVE N EGATIVE Encounters ACCT No. Visit Date/Time Discharge Status Pt. Type Provider Facility Loc./Unit Complaint [id number] 09/20/2019 13:00:00 09/20/2019 23:59: 59 CLS Outpatient JAMES SIDDIQUI APRN [facility] [id number] 05/14/2019 10:00:00 Document Registration [id number] 09/29/2017 08:20:00 Document Registration [id number] 10/18/2019 08:45:00 08:45:00 CAN Outpatient JOHN KOHLER [facility] RAD OSTEOARTHRITIS OF LEFT KNEE [id number] 09/28/2019 12:00:00 23:59:59 CLS Outpatient JAMES SIDDIQUI [facility] RAD DISORDERS OF BONE DENS ITY [id number] 05/18/2018 03:32:00 018 03:58:00 DIS Outpatient CAROLINA CEE, SHERICE Chua [facility] ER L ARM NUMB THROAT SWOLL EN [id number] 05/13/2018 16:50:00 018 17:46:00 DIS Emergency SUSAN ROBERSON MD [facility] ER BACK INJ [id number] 10/08/2016 19:20:00 016 21:49:00 DIS Emergency CARMEN LOAIZA MD [facility] ER CP [id number] 10/06/2016 19:44:00 21:58:00 DIS Emergency CARMEN LOAIZA MD [facility] ER L ARM NUMB FEET PAIN [id number] 06/09/2014 06:30:00 014 09:50:00 DIS Inpatient JEROMY DELCID DO [facility] 4TH LEFT ARM/FULL W EASHIRAESS [id number] 03/15/2013 09:19:00 013 23:59:59 CLS Outpatient OLLIE TATE [facility] MOBVAN ROUTINE [id number] 02/09/2020 22:25:00 Document Registration [id number] 12/12/2011 00:32:00 Document Registration [id number] 10/31/2011 03:21:00 Document Registration
--- OUTSIDE RECORDS SUMMARY | 2020-02-10 01:06 | XMS REPORT ---
Author Author Amada SIDDIQUI Organization [facility] Address [address] [place] [address] Care Team Providers Care Electrician Front Name Role Phone JAMES SIDDIQUI Unavailable PROBLEMS Type Condition ICD9-CM Code [id number] Code Onset Dates Condition S tatus SNOMED Code Problem Anxiety F41.9 Active 09908995 Problem Gastroesophageal reflux disease without esophagitis K21.9 Active 085434424 Problem Prediabetes R73.03 Active 07832732 2 Problem COPD (chronic obstructive pulmonary disease) wit h chronic bronchitis J44.9 Active 37966089 Problem Chronic obstructive pulmonary disease, unspecified COPD ty pe J44.9 Active 61281849 Problem Hand numbness R20.0 Active 416226 004 Problem Nocturia more than twice per night R35.1 Active 791566270 Problem Elevated cholesterol with elevated triglycerides E 78.2 Active 235992476 Problem COPD mixed type J44.9 Active 1364 5005 ALLERGIES No Information ENCOUNTERS Encounter Location Date Diagnosis [facility] [address] [address] May, [facility] [address] [address] Apr, COPD (chronic obstructive pu lmonary disease) with chronic bronchitis J44.9 [facility] [address] [place] [id number] [address] [place] [phone] Apr, Allergic rhinitis, unspecifi ed seasonality, unspecified trigger J30.9 ; Sore throat J02.9 and Chronic obstructive pulmonary disease, unspecified COPD type J44.9 [facility] [address] [place] [id number] [address] [place] [phone] Feb, Gastroesophageal reflux dise ase without esophagitis K21.9 [facility] [address] [place] [id number] [place] [phone] 27 Jan, 2018 Anxiety F41.9 [place] [address] [address] 14 Jan, 2018 Acute exacerbation of chroni c obstructive bronchitis J44.1 [place] [address] [address] 15 Dec, 2017 Frequent headaches R51 [place] [address] [address] 13 Dec, 2017 Anxiety F41.9 [place] [address] [address] Dec, Intractable migraine without aura and without status migrainosus G43.019 [place] [address] [address] Oct, Intractable migraine without aura and without status migrainosus G43.019 [place] [address] [address] 14 Sep, 2017 Elevated cholesterol with el evated triglycerides E78.[address] [address] Sep, Intractable migraine without aura and without status migrainosus G43.019 and Anxiety F41.[address] [address] Sep, Anxiety F41.9 ; COPD (chroni c obstructive pulmonary disease) with chronic bronchitis J44.9 ; Mass of lung R91.8 ; Family history of diabetes mellitus Z83.3 and Family history of early CAD Z82.49 [place] [address] [address] 03 Sep, 2017 Anxiety F41.9 ; COPD (chroni c obstructive pulmonary disease) with chronic bronchitis J44.9 ; Mass of lung R91.8 ; Family history of diabetes mellitus Z83.3 and Family history of early CAD Z82.49 [place] [address] [place] [id number] [address] [place] [address] Jul, Anxiety F41.9 [place] [address] [place] [id number] [place] [address] Apr, Anxiety F41.9 [place] [address] [place] [id number] [place] [address] Feb, Prediabetes R73.03 ; Gastroe sophageal reflux disease without esophagitis K21.9 ; Anxiety F41.9 and COPD mixed type J44.9 [place] [address] [facility] [id number] [address] [place] [address] Dec, [place] [address] [place] [id number] [place] [address] Nov, Nocturia more than twice per night R35.1 ; Hand numbness R20.0 ; Encounter to establish care Z76.89 ; Gastroesophageal reflux disease without esophagitis K21.9 ; Anxiety F41.9 and Prediabetes R73.03 IMMUNIZATIONS No Known Immunizations SOCIAL HISTORY Never Assessed REASON FOR VISIT Requests return call PLAN OF CARE VITAL SIGNS MEDICATIONS Medication Instructions Dosage Frequency Start Date End Date Duration S tatus ProAir HFA 108 (90 Base) MCG/ACT Inhalation 4 times a day 2 puffs a s needed 6h Feb, Active RESULTS No Results PROCEDURES No Known procedures INSTRUCTIONS MEDICATIONS ADMINISTERED No Known Medications MEDICAL (GENERAL) HISTORY Type Description Date Medical History anxiety Medical History prediabetes Medical History GERD Surgical History Gallbladder Removal Surgical History Appendectomy Surgical History Tonsilectomy Hospitalization History Surgery/child
--- OUTSIDE RECORDS SUMMARY | 2020-02-10 01:06 | XMS REPORT ---
Author Author Amada SIDDIQUI Organization [facility] Address [address] [place] [address] Care Team Providers Care Music Pastor Name Role Phone JAMES SIDDIQUI Unavailable PROBLEMS Type Condition ICD9-CM Code [id number] Code Onset Dates Condition S tatus SNOMED Code Problem Anxiety F41.9 Active 68554177 Problem Gastroesophageal reflux disease without esophagitis K21.9 Active 873383677 Problem Prediabetes R73.03 Active 20500923 2 Problem COPD (chronic obstructive pulmonary disease) wit h chronic bronchitis J44.9 Active 76830930 Problem Chronic obstructive pulmonary disease, unspecified COPD ty pe J44.9 Active 86545043 Problem Hand numbness R20.0 Active 199783 004 Problem Nocturia more than twice per night R35.1 Active 300152591 Problem Elevated cholesterol with elevated triglycerides E 78.2 Active 803116195 Problem COPD mixed type J44.9 Active 1364 5005 ALLERGIES No Information ENCOUNTERS Encounter Location Date Diagnosis [facility] [address] [address] May, [facility] [address] [address] Apr, COPD (chronic obstructive pu lmonary disease) with chronic bronchitis J44.9 [facility] [address] [place] [id number] [place] [phone] Apr, Allergic rhinitis, unspecifi ed seasonality, unspecified trigger J30.9 ; Sore throat J02.9 and Chronic obstructive pulmonary disease, unspecified COPD type J44.9 [facility] [address] [place] [id number] [place] [address] Feb, Gastroesophageal reflux dise ase without esophagitis K21.9 [facility] [address] [place] [id number] [place] [address] 27 Jan, 2018 Anxiety F41.9 [place] [address] [address] 14 Jan, 2018 Acute exacerbation of chroni c obstructive bronchitis J44.1 [place] [address] [address] 15 Dec, 2017 Frequent headaches R51 [place] [address] [address] 13 Dec, 2017 Anxiety F41.9 [place] [address] [address] Dec, Intractable migraine without aura and without status migrainosus G43.019 [place] [address] [address] Oct, Intractable migraine without aura and without status migrainosus G43.019 [place] [address] [address] 14 Sep, 2017 Elevated cholesterol with el evated triglycerides E78.[address] [address] Sep, Intractable migraine without aura and without status migrainosus G43.019 and Anxiety F41.[address] [address] Sep, Anxiety F41.9 ; COPD (chroni c obstructive pulmonary disease) with chronic bronchitis J44.9 ; Mass of lung R91.8 ; Family history of diabetes mellitus Z83.3 and Family history of early CAD Z82.49 [place] [address] [address] 03 Sep, 2017 Anxiety F41.9 ; COPD (chroni c obstructive pulmonary disease) with chronic bronchitis J44.9 ; Mass of lung R91.8 ; Family history of diabetes mellitus Z83.3 and Family history of early CAD Z82.49 [place] [address] [place] [id number] [place] [address] Jul, Anxiety F41.9 [place] [address] [place] [id number] [place] [phone] Apr, Anxiety F41.9 [place] [address] [place] [id number] [place] [phone] Feb, Prediabetes R73.03 ; Gastroe sophageal reflux disease without esophagitis K21.9 ; Anxiety F41.9 and COPD mixed type J44.9 [place] [address] [place] [id number] [place] [address] Dec, [place] [address] [place] [id number] [place] [address] Nov, Nocturia more than twice per night R35.1 ; Hand numbness R20.0 ; Encounter to establish care Z76.89 ; Gastroesophageal reflux disease without esophagitis K21.9 ; Anxiety F41.9 and Prediabetes R73.03 IMMUNIZATIONS No Known Immunizations SOCIAL HISTORY Never Assessed REASON FOR VISIT Refill request PLAN OF CARE VITAL SIGNS MEDICATIONS Medication Instructions Dosage Frequency Start Date End Date Duration S tatus Omeprazole 20 mg Orally Once a day 1 capsule 24h Active RESULTS No Results PROCEDURES No Known procedures INSTRUCTIONS MEDICATIONS ADMINISTERED No Known Medications MEDICAL (GENERAL) HISTORY Type Description Date Medical History anxiety Medical History prediabetes Medical History GERD Surgical History Gallbladder Removal Surgical History Appendectomy Surgical History Tonsilectomy Hospitalization History Surgery/child
--- OUTSIDE RECORDS SUMMARY | 2020-02-10 01:06 | XMS REPORT ---
Author Author Amada MORENO Organization [facility] Address [address] [place] [address] Care Team Providers Care Power Station Operator Name Role Phone TARI MORENO Unavailable PROBLEMS Type Condition ICD9-CM Code [id number] Code Onset Dates Condition S tatus SNOMED Code Problem Anxiety F41.9 Active 95751535 Problem Gastroesophageal reflux disease without esophagitis K21.9 Active 791432265 Problem Prediabetes R73.03 Active 38520528 2 Problem COPD (chronic obstructive pulmonary disease) wit h chronic bronchitis J44.9 Active 18079487 Problem Chronic obstructive pulmonary disease, unspecified COPD ty pe J44.9 Active 40876544 Problem Hand numbness R20.0 Active 656658 004 Problem Nocturia more than twice per night R35.1 Active 453116027 Problem Elevated cholesterol with elevated triglycerides E 78.2 Active 445386665 Problem COPD mixed type J44.9 Active 1364 5005 ALLERGIES Substance Reaction Event Type Date Status PredniSONE Throat swelling Drug Allergy May, Active Etodolac hives Drug Allergy May, Active Codeine Sulfate Hives Drug Allergy May, Active Clonidine HCl thorat swelling Drug Allergy May, Active ENCOUNTERS Encounter Location Date Diagnosis [facility] [address] [facility] [id number] [address] [place] [phone] May, Dermatitis L30.9 [facility] [address] [facility] [id number] [address] [place] [phone] Apr, COPD (chronic obstructive pu lmonary disease) with chronic bronchitis J44.9 [facility] [address] [facility] [id number] [address] [place] [address] Apr, Allergic rhinitis, unspecifi ed seasonality, unspecified trigger J30.9 ; Sore throat J02.9 and Chronic obstructive pulmonary disease, unspecified COPD type J44.9 [place] [address] [place] [id number] [address] [place] [address] 02 Feb, 2018 Gastroesophageal reflux dise ase without esophagitis K21.9 [place] [address] [place] [id number] [address] [place] [address] 27 Jan, 2018 Anxiety F41.9 [place] [address] [place] [id number] [place] [address] 14 Jan, 2018 Acute exacerbation of chroni c obstructive bronchitis J44.1 [place] [address] [address] 15 Dec, 2017 Frequent headaches R51 [place] [address] [address] Dec, Anxiety F41.9 [place] [address] [address] Dec, Intractable migraine without aura and without status migrainosus G43.019 [place] [address] [place] [id number] [address] [place] [address] Oct, Intractable migraine without aura and without status migrainosus G43.019 [place] [address] [address] Sep, Elevated cholesterol with el evated triglycerides E78.2 [place] [address] [address] Sep, Intractable migraine without aura and without status migrainosus G43.019 and Anxiety F41.9 [place] [address] [place] [id number] [address] [place] [address] Sep, Anxiety F41.9 ; COPD (chroni c obstructive pulmonary disease) with chronic bronchitis J44.9 ; Mass of lung R91.8 ; Family history of diabetes mellitus Z83.3 and Family history of early CAD Z82.49 [place] [address] [address] Sep, Anxiety F41.9 ; COPD (chroni c obstructive pulmonary disease) with chronic bronchitis J44.9 ; Mass of lung R91.8 ; Family history of diabetes mellitus Z83.3 and Family history of early CAD Z82.49 [place] [address] [address] Jul, Anxiety F41.9 [place] [address] [address] Apr, Anxiety F41.9 [place] [address] [address] Feb, Prediabetes R73.03 ; Gastroe sophageal reflux disease without esophagitis K21.9 ; Anxiety F41.9 and COPD mixed type J44.9 [place] [address] [address] Dec, [place] [address] [address] Nov, Nocturia more than twice per night R35.1 ; Hand numbness R20.0 ; Encounter to establish care Z76.89 ; Gastroesophageal reflux disease without esophagitis K21.9 ; Anxiety F41.9 and Prediabetes R73.03 IMMUNIZATIONS No Known Immunizations SOCIAL HISTORY Never Assessed REASON FOR VISIT Rash-TERRY steen, itchy all over body PLAN OF CARE Activity Details Follow Up prn Reason: VITAL SIGNS Height 64.0 in 2018-06-09 Weight 143.7 lbs 2018-06-09 Temperature 98.1 degrees Fahrenheit 2018-06-09 Heart Rate 65 bpm 2018-06-09 Respiratory Rate 18 2018-06-09 BMI 24.66 kg/m2 2018-06-09 Blood pressure systolic 110 mmHg 2018-06-09 Blood pressure diastolic 70 mmHg 2018-06-09 MEDICATIONS Medication Instructions Dosage Frequency Start Date End Date Duration S apus HydrOXYzine HCl 25 MG Orally 3 times a day 1 tablet as needed 8h 24 May, 2018 05 days Active Propranolol HCl 20 MG Orally Twice a day 1 tablet 12h 15 Dec, 2017 30 day(s) Active Ibuprofen 200 mg Orally Three times a day 1 tablet with food or milk as needed 8h Active ProAir HFA 108 (90 Base) MCG/ACT Inhalation every 4 hrs 2 puffs as needed 4h Feb, Active PredniSONE 50 mg Orally Once a day 1 tablet 24h May, May, 05 days Active Pantoprazole Sodium 40 mg Orally Once a day 1 tablet 24h Feb, 8 90 days Active RESULTS No Results PROCEDURES No Known procedures INSTRUCTIONS MEDICATIONS ADMINISTERED No Known Medications MEDICAL (GENERAL) HISTORY Type Description Date Medical History anxiety Medical History prediabetes Medical History GERD Surgical History Gallbladder Removal Surgical History Appendectomy Surgical History Tonsilectomy Hospitalization History Surgery/child
--- OUTSIDE RECORDS SUMMARY | 2020-02-10 01:06 | XMS REPORT ---
Author Author Amada SIDDIQUI Organization [facility] Address [address] [place] [address] Care Team Providers Care Carton Making Machine Operator Name Role Phone CHENJAMES Unavailable PROBLEMS Type Condition ICD9-CM Code [id number] Code Onset Dates Condition S tatus SNOMED Code Problem Anxiety F41.9 Active 08104167 Problem Gastroesophageal reflux disease without esophagitis K21.9 Active 279155808 Problem Prediabetes R73.03 Active 20007646 2 Problem COPD (chronic obstructive pulmonary disease) wit h chronic bronchitis J44.9 Active 55070925 Problem Chronic obstructive pulmonary disease, unspecified COPD ty pe J44.9 Active 81751154 Problem Hand numbness R20.0 Active 598883 004 Problem Nocturia more than twice per night R35.1 Active 155270872 Problem Elevated cholesterol with elevated triglycerides E 78.2 Active 126693922 Problem COPD mixed type J44.9 Active 1364 5005 ALLERGIES Substance Reaction Event Type Date Status Etodolac hives Drug Allergy Apr, Active Codeine Sulfate Hives Drug Allergy Apr, Active Clonidine HCl thorat swelling Drug Allergy Apr, Active ENCOUNTERS Encounter Location Date Diagnosis [facility] [address] [facility] [id number] [address] [place] [phone] May, Dermatitis L30.9 [facility] [address] [facility] [id number] [address] [place] [phone] Apr, COPD (chronic obstructive pu lmonary disease) with chronic bronchitis J44.9 [facility] [address] [facility] [id number] [address] [place] [address] Apr, Allergic rhinitis, unspecifi ed seasonality, unspecified trigger J30.9 ; Sore throat J02.9 and Chronic obstructive pulmonary disease, unspecified COPD type J44.9 [facility] [address] [facility] [id number] [address] [place] [address] Feb, Gastroesophageal reflux dise ase without esophagitis K21.9 [place] [address] [address] 27 Jan, 2018 Anxiety F41.9 [place] [address] [place] [id number] [place] [address] 14 Jan, 2018 Acute exacerbation of chroni c obstructive bronchitis J44.1 [place] [address] [address] 15 Dec, 2017 Frequent headaches R51 [place] [address] [address] 13 Dec, 2017 Anxiety F41.9 [place] [address] [address] Dec, Intractable migraine without aura and without status migrainosus G43.019 [place] [address] [address] Oct, Intractable migraine without aura and without status migrainosus G43.019 [place] [address] [address] 14 Sep, 2017 Elevated cholesterol with el evated triglycerides E78.2 [place] [address] [address] 13 Sep, 2017 Intractable migraine without aura and without status migrainosus G43.019 and Anxiety F41.9 [place] [address] [address] 13 Sep, 2017 Anxiety F41.9 ; COPD (chroni c obstructive pulmonary disease) with chronic bronchitis J44.9 ; Mass of lung R91.8 ; Family history of diabetes mellitus Z83.3 and Family history of early CAD Z82.49 [place] [address] [address] 03 Sep, 2017 Anxiety F41.9 ; COPD (chroni c obstructive pulmonary disease) with chronic bronchitis J44.9 ; Mass of lung R91.8 ; Family history of diabetes mellitus Z83.3 and Family history of early CAD Z82.49 [place] [address] [address] 28 Jul, 2017 Anxiety F41.9 [place] [address] [address] Apr, Anxiety F41.9 [place] [address] [address] Feb, Prediabetes R73.03 ; Gastroe sophageal reflux disease without esophagitis K21.9 ; Anxiety F41.9 and COPD mixed type J44.9 [place] [address] [address] 14 Dec, 2016 [place] [address] [address] Nov, Nocturia more than twice per night R35.1 ; Hand numbness R20.0 ; Encounter to establish care Z76.89 ; Gastroesophageal reflux disease without esophagitis K21.9 ; Anxiety F41.9 and Prediabetes R73.03 IMMUNIZATIONS No Known Immunizations SOCIAL HISTORY Never Assessed REASON FOR VISIT PALS-combivent PLAN OF CARE VITAL SIGNS MEDICATIONS Medication Instructions Dosage Frequency Start Date End Date Duration S tatus Combivent Respimat 20-100 MCG/ACT Inhalation Four times a day 1 puf f 6h Apr, 90 days Active RESULTS No Results PROCEDURES No Known procedures INSTRUCTIONS MEDICATIONS ADMINISTERED No Known Medications MEDICAL (GENERAL) HISTORY Type Description Date Medical History anxiety Medical History prediabetes Medical History GERD Surgical History Gallbladder Removal Surgical History Appendectomy Surgical History Tonsilectomy Hospitalization History Surgery/child
--- OUTSIDE RECORDS SUMMARY | 2020-02-10 01:06 | XMS REPORT ---
Author Author Amada SIDDIQUI Organization [facility] Address [address] [place] [address] Care Team Providers Care Beaver Trapper Name Role Phone CHENJAMES Unavailable PROBLEMS Type Condition ICD9-CM Code [id number] Code Onset Dates Condition S tatus SNOMED Code Problem Anxiety F41.9 Active 31346120 Problem Gastroesophageal reflux disease without esophagitis K21.9 Active 583672849 Problem Prediabetes R73.03 Active 32903595 2 Problem COPD (chronic obstructive pulmonary disease) wit h chronic bronchitis J44.9 Active 93341704 Problem Chronic obstructive pulmonary disease, unspecified COPD ty pe J44.9 Active 46788401 Problem Hand numbness R20.0 Active 589972 004 Problem Nocturia more than twice per night R35.1 Active 862873333 Problem Elevated cholesterol with elevated triglycerides E 78.2 Active 667123226 Problem COPD mixed type J44.9 Active 1364 5005 ALLERGIES Substance Reaction Event Type Date Status Etodolac hives Drug Allergy Dec, Active Codeine Sulfate Hives Drug Allergy Dec, Active Clonidine HCl thorat swelling Drug Allergy Dec, Active ENCOUNTERS Encounter Location Date Diagnosis [facility] [address] [place] [id number] [place] [phone] Apr, COPD (chronic obstructive pu lmonary disease) with chronic bronchitis J44.9 [facility] [address] [facility] [id number] [address] [place] [phone] Apr, Allergic rhinitis, unspecifi ed seasonality, unspecified trigger J30.9 ; Sore throat J02.9 and Chronic obstructive pulmonary disease, unspecified COPD type J44.9 [facility] [address] [place] [id number] [place] [phone] Feb, Gastroesophageal reflux dise ase without esophagitis K21.9 [facility] [address] [phone] 27 Jan, 2018 Anxiety F41.9 [place] [address] [phone] 14 Jan, 2018 Acute exacerbation of chroni c obstructive bronchitis J44.1 [place] [address] [address] 15 Dec, 2017 Frequent headaches R51 [place] [address] [address] Dec, Anxiety F41.[address] [address] Dec, Intractable migraine without aura and without status migrainosus G43.[address] [address] Oct, Intractable migraine without aura and without status migrainosus G43.019 [place] [address] [address] 14 Sep, 2017 Elevated cholesterol with el evated triglycerides E78.[address] [address] 13 Sep, 2017 Intractable migraine without aura and without status migrainosus G43.019 and Anxiety F41.[address] [address] Sep, Anxiety F41.9 ; COPD (chroni c obstructive pulmonary disease) with chronic bronchitis J44.9 ; Mass of lung R91.8 ; Family history of diabetes mellitus Z83.3 and Family history of early CAD Z82.[address] [address] 03 Sep, 2017 Anxiety F41.9 ; COPD (chroni c obstructive pulmonary disease) with chronic bronchitis J44.9 ; Mass of lung R91.8 ; Family history of diabetes mellitus Z83.3 and Family history of early CAD Z82.49 [place] [address] [facility] [id number] [address] [place] [phone] Jul, Anxiety F41.9 [place] [address] [facility] [id number] [address] [place] [phone] Apr, Anxiety F41.9 [place] [address] [place] [id number] [place] [phone] Feb, Prediabetes R73.03 ; Gastroe sophageal reflux disease without esophagitis K21.9 ; Anxiety F41.9 and COPD mixed type J44.9 [place] [address] [place] [id number] [place] [phone] Dec, [place] [address] [place] [id number] [place] [phone] Nov, Nocturia more than twice per night R35.1 ; Hand numbness R20.0 ; Encounter to establish care Z76.89 ; Gastroesophageal reflux disease without esophagitis K21.9 ; Anxiety F41.9 and Prediabetes R73.03 IMMUNIZATIONS No Known Immunizations SOCIAL HISTORY Never Assessed REASON FOR VISIT Headache, reports getting twice daily for about a month to 2 months ago. starts at base of neck, then moves to top of head, feels like her head is going to expl ode. Taking ibuprofen for this. CBrumbackRN PLAN OF CARE VITAL SIGNS Height 64.0 in 2018-01-01 Weight 144.1 lbs 2018-01-01 Temperature 98.2 degrees Fahrenheit 2018-01-01 Heart Rate 92 bpm 2018-01-01 Respiratory Rate 20 2018-01-01 BMI 24.73 kg/m2 2018-01-01 Blood pressure systolic 110 mmHg 2018-01-01 Blood pressure diastolic 60 mmHg 2018-01-01 MEDICATIONS Medication Instructions Dosage Frequency Start Date End Date Duration S tatus Propranolol HCl 20 MG Orally Twice a day 1 tablet 12h 15 Dec, 2017 30 day(s) Active ProAir HFA 108 (90 Base) MCG/ACT Inhalation every 4 hrs 2 puffs as needed 4h 24 Feb, 2017 Active Valium 10 mg Orally Twice a day 1 tablet as needed 12h 13 Sep, 2017 Active Ibuprofen 200 mg Orally Three times a day 1 tablet with food or milk as needed 8h Active RESULTS No Results PROCEDURES No Known procedures INSTRUCTIONS MEDICATIONS ADMINISTERED No Known Medications MEDICAL (GENERAL) HISTORY Type Description Date Medical History anxiety Medical History prediabetes Medical History GERD Surgical History Gallbladder Removal Surgical History Appendectomy Surgical History Tonsilectomy Hospitalization History Surgery/child
--- OUTSIDE RECORDS SUMMARY | 2020-02-10 01:06 | XMS REPORT ---
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 Name Role Phone CHENJAMES Unavailable PROBLEMS Type Condition ICD9-CM Code [id number] Code Onset Dates Condition S tatus SNOMED Code Problem Anxiety F41.9 Active 73324748 Problem Gastroesophageal reflux disease without esophagitis K21.9 Active 382518754 Problem Prediabetes R73.03 Active 67463923 2 Problem COPD (chronic obstructive pulmonary disease) wit h chronic bronchitis J44.9 Active 28533361 Problem Chronic obstructive pulmonary disease, unspecified COPD ty pe J44.9 Active 57884231 Problem Hand numbness R20.0 Active 274755 004 Problem Nocturia more than twice per night R35.1 Active 785814871 Problem Elevated cholesterol with elevated triglycerides E 78.2 Active 908698664 Problem COPD mixed type J44.9 Active 1364 5005 ALLERGIES Substance Reaction Event Type Date Status Etodolac hives Drug Allergy Feb, Active Codeine Sulfate Hives Drug Allergy Feb, Active Clonidine HCl thorat swelling Drug Allergy Feb, Active ENCOUNTERS Encounter Location Date Diagnosis [facility] [address] [facility] [id number] [address] [place] [phone] May, [facility] [address] [facility] [id number] [address] [place] [phone] May, Dermatitis L30.9 [facility] [address] [facility] [id number] [address] [place] [phone] Apr, COPD (chronic obstructive pu lmonary disease) with chronic bronchitis J44.9 [facility] [address] [facility] [id number] [address] [place] [phone] Apr, Allergic rhinitis, unspecifi ed seasonality, unspecified trigger J30.9 ; Sore throat J02.9 and Chronic obstructive pulmonary disease, unspecified COPD type J44.9 [place] [address] [address] 02 Feb, 2018 Gastroesophageal reflux dise ase without esophagitis K21.9 [place] [address] [place] [id number] [place] [phone] 27 Jan, 2018 Anxiety F41.9 [place] [address] [place] [id number] 14 Jan, 2018 Acute exacerbation of chroni c obstructive bronchitis J44.1 [place] [address] [address] 15 Dec, 2017 Frequent headaches R51 [place] [address] [address] 13 Dec, 2017 Anxiety F41.9 [place] [address] [address] Dec, Intractable migraine without aura and without status migrainosus G43.019 [place] [address] [address] Oct, Intractable migraine without aura and without status migrainosus G43.019 [place] [address] [address] 14 Sep, 2017 Elevated cholesterol with el evated triglycerides E78.2 [place] [address] [address] 13 Sep, 2017 Intractable migraine without aura and without status migrainosus G43.019 and Anxiety F41.9 [place] [address] [address] Sep, Anxiety F41.9 ; COPD (chroni c obstructive pulmonary disease) with chronic bronchitis J44.9 ; Mass of lung R91.8 ; Family history of diabetes mellitus Z83.3 and Family history of early CAD Z82.49 [place] [address] [place] [address] Sep, Anxiety F41.9 ; COPD (chroni c obstructive pulmonary disease) with chronic bronchitis J44.9 ; Mass of lung R91.8 ; Family history of diabetes mellitus Z83.3 and Family history of early CAD Z82.49 [place] [address] [address] Jul, Anxiety F41.9 [place] [address] [address] Apr, Anxiety F41.9 [place] [address] [address] Feb, Prediabetes R73.03 ; Gastroe sophageal reflux disease without esophagitis K21.9 ; Anxiety F41.9 and COPD mixed type J44.9 [place] [address] [address] 14 Dec, 2016 [place] [address] [address] Nov, Nocturia more than twice per night R35.1 ; Hand numbness R20.0 ; Encounter to establish care Z76.89 ; Gastroesophageal reflux disease without esophagitis K21.9 ; Anxiety F41.9 and Prediabetes R73.03 IMMUNIZATIONS No Known Immunizations SOCIAL HISTORY Never Assessed REASON FOR VISIT GERD f/u----HERBERTennettRBautista PLAN OF CARE VITAL SIGNS Height 64.0 in 2018-02-16 Weight 152 lbs 2018-02-16 Temperature 98.1 degrees Fahrenheit 2018-02-16 Heart Rate 90 bpm 2018-02-16 Respiratory Rate 20 2018-02-16 BMI 26.09 kg/m2 2018-02-16 Blood pressure systolic 110 mmHg 2018-02-16 Blood pressure diastolic 62 mmHg 2018-02-16 MEDICATIONS Medication Instructions Dosage Frequency Start Date End Date Duration S tatus ProAir HFA 108 (90 Base) MCG/ACT Inhalation every 4 hrs 2 puffs as needed 4h Feb, Active Amoxicillin 500 mg Orally 2 times a day 2 capsules 12h Feb, Feb, 14 days Active Ibuprofen 200 mg Orally Three times a day 1 tablet with food or milk as needed 8h Active Propranolol HCl 20 MG Orally Twice a day 1 tablet 12h 15 Dec, 2017 30 day(s) Active Metronidazole 500 mg Orally Twice a day 1 tablet 12h 02 Feb, 18 16 Feb, 2018 14 days Active Pantoprazole Sodium 40 mg Orally [...]
--- NOTE | 2020-02-10 05:45 | Diagnostic Imaging Report ---
INDICATION: Abdominal pain COMPARISON: 10/08/2016 FINDINGS: Supine and upright views of the abdomen show a nondistended bowel gas pattern. Moderate colonic air and stool is noted. No abnormal air fluid levels or free intraperitoneal air is seen. No abnormal extraosseous calcifications are seen. Bony and soft tissue structures are within normal limits. No organomegaly is identified. Accompanying upright chest shows normal heart size and pulmonary vascularity. The lungs are well aerated and clear. The mediastinum is normal in appearance. IMPRESSION: 1. No bowel obstruction or free air. 2. Normal chest. No pneumonia or pulmonary edema. 3. Moderate colonic air and stool. Please correlate for constipation. Dictated by: Dictated on workstation # [id number]
--- NOTE | 2020-02-10 06:40 | Diagnostic Imaging Report ---
PROCEDURE: CT urinary tract, rule out kidney stone. TECHNIQUE: Multiple contiguous axial images were obtained through the abdomen and pelvis without the use of intravenous contrast. Auto Exposure Controls were utilized during the CT exam to meet ALARA standards for radiation dose reduction. INDICATION: Abdominal pain. COMPARISON: CT chest dated 10/06/2016 FINDINGS: Included portions of the lung bases show 7 mm calculus within the inferolateral margins of the left lower lobe (image 17, series 2). This, however appears stable compared to 10/06/2016. Note is also made of significant calcified coronary atherosclerosis. CT ABDOMEN: There is colonic diverticulosis. Note is also made of mild stranding surrounding the sigmoid colon. There is no pneumatosis, pneumoperitoneum, nor portal venous gas. Additionally, there is no significant free fluid within the abdomen or pelvis nor loculated air-fluid collection. Small bowel loops are nondistended. Normal appendix cannot be adequately identified, but appears to be surgically absent. Kidneys, adrenal glands, spleen, pancreas, and liver have an unremarkable noncontrast CT appearance. No abnormal mesenteric or retroperitoneal adenopathy is seen. There is moderate diffuse calcified aortic and arterial atherosclerosis. Osseous structures show no acute abnormalities. CT pelvis: Again, there is sigmoid diverticulosis with mild stranding of the perisigmoidal fat. There is no loculated fluid collection, free fluid, nor free air within the pelvis. No abnormal adenopathy is seen. Urinary bladder is unopacified. No calculi are seen within urinary bladder. Osseous structures show no acute abnormalities. IMPRESSION: 1. Sigmoidal diverticulosis with mild stranding of the perisigmoidal fat. Findings could be on the basis of acute diverticulitis. Please note, however that colonic malignancy may present in a similar manner. Correlation with colonoscopy is recommended when clinically appropriate. 2. No pneumatosis, pneumoperitoneum, portal venous gas, nor evidence of abscess. 3. Moderate calcified aorta, coronary, and arterial atherosclerosis. Correlation with underlying risk factors is advised. Dictated by: Dictated on workstation # [id number]
== END 2020-02-10 00:25 | disposition home or self-care (01) ==
LOC: EDUNIT# 21:59 → ER 22:01
DX: K57.32 Diverticulitis of large intestine without perforation or abscess without bleeding (principal); J44.9 Chronic obstructive pulmonary disease, unspecified; K21.9 Gastro-esophageal reflux disease without esophagitis; F17.210 Nicotine dependence, cigarettes, uncomplicated
CPT/HCPCS: 36415; 74022; 74176; 80053; 80306; 80320; 80329; 81000; 82150; 83690; 83735; 85025; 93041

== ENCOUNTER 2020-03-23 07:21 | Outpatient (RCR) | payer OTHER ==
[~2020-03-23] VITALS: Ht 160 cm; Wt 65.0 kg
[~2020-03-23 07:21] MED LIST changes: +CIPR500T4 PO; +HYOS0.1283 SL; +METR500T PO; +ONDA8TAB13 PO
== END 2020-03-23 15:26 | disposition home or self-care (01) ==
LOC: PREOP 07:21
PROVIDERS: ATTEND Surgery
DX: Z01.818 Encounter for other preprocedural examination (principal); Z11.59 Encounter for screening for other viral diseases
CPT/HCPCS: 87635

== ENCOUNTER 2020-04-18 11:05 | Outpatient (RCR) | payer SELFPAY | END 2020-07-13 | disposition home or self-care (01) | LOC: LAB 11:05 | PROVIDERS: ATTEND Surgery | DX: Z01.89 Encounter for other specified special examinations (principal); B96.81 Helicobacter pylori [H. pylori] as the cause of diseases classified elsewhere | CPT/HCPCS: 36415; 87338 ==

== ENCOUNTER 2020-12-23 02:40 | Emergency (ER) | payer SELFPAY ==
[~2020-12-23] VITALS: Ht 160 cm; Wt 68.5 kg
[2020-12-23 02:50] VITALS: BP 143/82
[2020-12-23] MEDS ORDERED: diphenhydrAMINE 25 MG TAB (BENADRYL) PO ONE (03:00)
--- NOTE | 2020-12-23 03:01 | ED Respiratory ---
General Chief Complaint: General Problems/Pain Stated Complaint: FEELS LIKE INHALER IS CLOSING THROAT Source: patient Exam Limitations: no limitations History of Present Illness Date Seen by Provider: Dec 23, 2020 Time Seen by Provider: 02:49 Initial Comments The patient presents to the ER by private conveyance from home with chief com plaint of shortness of air and feeling like the back of her throat is swelling up. She says she took a single dose of Spiriva before going to bed a few hours ago and she equates this with the reason this is happening. She has not had anaphylaxis before but she says anytime she takes any breathing treatments for her COPD nebulizers or MDIs this causes the same effect. She has a lot of anxiety. She follows with Santos hawley for primary care and sees a flower stripper that comes out to the clinic. She still smokes about a half a pack of cigarettes per day. She is had no cough fever chills nausea vomiting or diarrhea. No loss of sense of taste or smell. No swelling of her tongue or inability to swallow or drink. Allergies and Home Medications Allergies Coded Allergies: codeine (Unverified Allergy, Mild, HIVES, 03/23/09) Home Medications Albuterol Sulfate 1 Puff Puff, 2 PUFF IH Q4H, (Reported) 1 PUFF = 90 MCG Patient Home Medication List Home Medication List Reviewed: Yes Review of Systems Review of Systems Constitutional: No chills, No diaphoresis EENTM: No ear discharge, No ear pain Respiratory: see HPI; No cough; short of breath Cardiovascular: No chest pain, No palpitations Gastrointestinal: No abdominal pain, No nausea Genitourinary: No discharge, No dysuria All Other Systems Reviewed Negative Unless Noted: Yes Past Azmmqsr-Hyeruy-Hmqldg Hx Patient Social History Alcohol Use: Denies Use Smoking Status: Current Everyday Smoker Type Used: Cigarettes 2nd Hand Smoke Exposure: Yes Recent Hopitalizations: No Immunizations Up To Date Tetanus Booster (TDap): Less than 5yrs PED Vaccines UTD: No Date of Pneumonia Vaccine: Sep 17, 2013 Seasonal Allergies Seasonal Allergies: No Past Medical History Surgeries: Yes Appendectomy, Gallbladder Respiratory: Yes Pneumonia, COPD Cardiac: No Neurological: Yes Headaches /Migraines Reproductive Disorders: No 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 Sexually Transmitted Disease: No HIV/AIDS: No Genitourinary: No Gastrointestinal: Yes (HEPATITIS C --NO TREATMENT) Gastroesophageal Reflux, Hepatitis Musculoskeletal: Yes (BILATERAL HAND PAIN ) Degenerate Disk Disease, Arthritis Endocrine: No HEENT: Yes (POOR DENTITION, GLASSES) Cataract Loss of Vision: Denies Hearing Impairment: Denies Cancer: No Psychosocial: Yes Anxiety, Depression Integumentary: No Blood Disorders: No Adverse Reaction/Blood Tranf: No (N/A) Family Medical History Cancer 19 MOTHER (BRAIN AT AGE 63) G8 BROTHER (THROAT) G8 SISTER Congestive heart failure 19 FATHER Family history: Breast disease G8 SISTER (BREAST CANCER) Family history: Cardiovascular disease 19 FATHER Family history: Diabetes mellitus 19 MOTHER G8 BROTHER History of - respiratory disease 19 FATHER Human immunodeficiency virus (HIV) seropositivity G8 SISTER, Onset:Unknown Physical Exam Vital Signs - First Documented 12/23/20 02:50 Temp 36.2 Pulse 94 Resp 28 B/P (MAP) 143/82 (102) Pulse Ox 97 O2 Delivery Room Air Capillary Refill : Height: 5'2.00" Weight: 146lbs. oz. 66.643374qi; 25.39 BMI Method:Stated General Appearance: WD/WN, mild distress Eyes: Bilateral Eye Normal Inspection, Bilateral Eye PERRL, Bilateral Eye EOMI HEENT: PERRL/EOMI, normal ENT inspection, TMs normal, pharynx normal (Retrophar ynx is widely patent without any soft tissue swelling or tongue swelling.), other (Negative for stridor or wheezing.) Neck: non-tender, full range of motion, supple, normal inspection Respiratory: lungs clear, normal breath sounds, no respiratory distress, no accessory muscle use Cardiovascular: normal peripheral pulses, regular rate, rhythm Neurologic/Psychiatric: alert, oriented x 3, other (Very anxious affect) Skin: normal color, warm/dry Progress/Results/Core Measures Suspected Sepsis SIRS Temperature: Pulse: Respiratory Rate: Blood Pressure / Mean: Results/Orders Lab Results Laboratory Tests Test 12/23/20 03:05 Range/Units Blood Gas Puncture Site RIGHT RADIAL Blood Gas Patient Temperature 96.2 Arterial Blood pH 7.48 H 7.37-7.43 Arterial Blood Partial Pressure CO2 30 L 35-45 MMHG Arterial Blood Partial Pressure O2 102 H 79-93 MMHG Arterial Blood HCO3 22 L 23-27 MMOL/L Arterial Blood Total CO2 23.2 21.0-31.0 MMOL/L Arterial Blood Oxygen Saturation 98 94-100 % Arterial Blood Base Excess -1.0 -2.5-2.5 MMOL/L Nura Test YES-POS Blood Gas Ventilator Setting NO Blood Gas Inspired Oxygen ROOM AIR My Orders Orders - SHERICE FIGUEROA Diphenhydramine Tablet (Benadryl Tablet) (12/23/20 03:00) Arterial Blood Gas (12/23/20 03:02) Medications Given in ED Current Medications Medications Dose Ordered Sig/Kemi Route Start Time Stop Time Status Last Admin Dose Admin Diphenhydramine HCl 25 mg ONCE ONCE PO 12/23/20 03:00 12/23/20 03:02 DC 12/23/20 03:00 25 MG Vital Signs/I&O 12/23/20 02:50 Temp 36.2 Pulse 94 Resp 28 B/P (MAP) 143/82 (102) Pulse Ox 97 O2 Delivery Room Air Capillary Refill : Progress Note #1: Time: 02:58 Progress Note The patient does not demonstrate any clinical evidence for angioedema. Plan to give her a tablet of Benadryl for its dual purposes of antihistamine and anxiolytic. We will keep her on the monitor and observe her for a short while. Plan to get an ABG to see if she has blown off all of her CO2 secondary to anxiety. She is not having any wheezing and has decent breath sounds so paradoxical bronchospasms does not seem to be the source of her complaints ton ight. Progress Note #2: Time: 03:22 Progress Note Patient's feeling much better after the first dose of Benadryl. ABG demonstrates she has blown off all of her CO2 which is typically from pain or in her case more likely anxiety. We discussed the possibility that she has anxiety and panic related to inhalers and she should look for good coping mechanisms with her primary care provider. She agrees with this. We did offer her some Ativan but she declined stating that the Benadryl usually works fine for anxiety attacks. We told her she could have another dose of Benadryl tonight and p rovided her with a note for work today. Departure Impression Primary Impression: Adverse reaction inhaler Additional Impression: Panic attack Disposition: 01 HOME, SELF-CARE Condition: Stable Departure-Patient Inst. Decision time for Depature: 03:20 Referrals: [facility] (PCP) Primary Care Physician JAMES SIDDIQUI (Family) Primary Care Physician Patient Instructions: Anxiety, Adult (DC), Panic Disorder Add. Discharge Instructions: I suspect you are having panic attacks tied to when you take the inhalers. Talk to Santos Glover about strategies to deal with this before you resume your Spiriva. Call for a follow-up appointment in the next few weeks. If you need another dose of Benadryl you can take another tablet tonight for anxiety or shortness of air. If your symptoms worsen or you have other new worrisome symptoms then please return to the nearest ER for further evaluation. All discharge instructions reviewed with patient and/or family. Voiced understanding. Work/School Note: Work Release Form Date Seen in the Emergency Department: Dec 23, 2020 Return to Work: Dec 24, 2020 Restrictions: No Restrictions Copy Copies To 1: ADILIA CRUZ TITUS J Dec 23, 2020 03:01
[2020-12-23 03:11] LABS: ABG OXYGEN SATURATION 98 % (94-100); ABG PCO2 30 MMHG (35-45); ABG PH 7.48 (7.37-7.43); ABG PO2 102 MMHG (79-93); ABG TCO2 23.2 MMOL/L (21.0-31.0); ALLENS TEST YES-POS; INSPIRED O2 ROOM AIR; PATIENT TEMP 96.2; VENTILATOR NO
== END 2020-12-23 03:28 | disposition home or self-care (01) ==
LOC: EDUNIT# 02:40 → ER 02:44
DX: F41.0 Panic disorder [episodic paroxysmal anxiety] (principal); T44.3X5A Adverse effect of other parasympatholytics [anticholinergics and antimuscarinics] and spasmolytics, initial encounter; F41.9 Anxiety disorder, unspecified; J44.9 Chronic obstructive pulmonary disease, unspecified; F17.210 Nicotine dependence, cigarettes, uncomplicated; Z88.5 Allergy status to narcotic agent; Z83.3 Family history of diabetes mellitus; Z82.49 Family history of ischemic heart disease and other diseases of the circulatory system; Z80.3 Family history of malignant neoplasm of breast; Z80.8 Family history of malignant neoplasm of other organs or systems; Z80.2 Family history of malignant neoplasm of other respiratory and intrathoracic organs
CPT/HCPCS: 82805

== ENCOUNTER → 2020-12-29 | Outpatient (CLI) | payer SELFPAY ==
[~2020-12-29] MED LIST changes: -CIPR500T4 PO; +CIPR500T5 PO
--- NOTE | 2020-12-29 13:13 | Diagnostic Imaging Report ---
PROCEDURE: CT chest without contrast. TECHNIQUE: Multiple contiguous axial images were obtained through the chest without the use of intravenous contrast. Auto Exposure Controls were utilized during the CT exam to meet ALARA standards for radiation dose reduction. INDICATION: COPD, shortness of air. CORRELATED with radiograph 02/09/2020 and compared with chest CT 12/06/2015. Tiny nodule left lower lobe stable from comparison 3 to 4 mm, confirming benignity. No new dominant or suspicious lung mass. No pathological-appearing axillary, hilar or mediastinal lymph nodes. The aorta is nonaneurysmal. No acute chest wall pathology. There are dense coronary arterial atherosclerotic vascular calcifications. No effusion or pneumothorax. The visualized upper abdomen unremarkable. IMPRESSION: Chronic stable benign granuloma or scar left lower lobe, no acute or suspicious chest mass, no infiltrate. Dictated by: Dictated on workstation # [id number]
== END ==
LOC: RAD 12:01
PROVIDERS: ATTEND Nurse Practitioner Family
DX: J44.9 Chronic obstructive pulmonary disease, unspecified (principal)
CPT/HCPCS: 71250

== ENCOUNTER → 2021-02-07 | Outpatient (CLI) | payer SELFPAY ==
[~2021-02-07] MED LIST changes: +RT-ALBUTEROL SULF 2.5 MG/3 ML PRE-MIX VIAL INH ONE
== END ==
LOC: RT 07:35
PROVIDERS: ATTEND Nurse Practitioner Family
DX: J44.9 Chronic obstructive pulmonary disease, unspecified (principal)

== ENCOUNTER 2021-07-12 21:05 | Emergency (ER) | payer SELFPAY ==
[~2021-07-12] VITALS: Ht 160 cm; Wt 65.8 kg
[~2021-07-12 21:05] MED LIST changes: -RT-ALBUTEROL SULF 2.5 MG/3 ML PRE-MIX VIAL INH ONE
--- NOTE | 2021-07-12 22:18 | ED EENT ---
History of Present Illness General Chief Complaint: Oral/Throat Problems Stated Complaint: SORE THROAT, MOUTH BLISTERS Nursing Triage Note: PT AMB TO RM 1 W C/O SORE THROAT AND SORES ON TONGUE. PT WAS SEEN AT [facility] TODAY AND TESTED NEG FOR COVID/FLU/STREP. Source: patient History of Present Illness Date Seen by Provider: Jul 12, 2021 Time Seen by Provider: 21:12 Initial Comments PT ARRIVES VIA POV FROM HOME C/O PAINFUL SORES ON TONGUE AND A SORE THROAT FOR THE LAST FEW DAYS NO FEVER NO RECENT ILLNESS C/O COUGH, BUT STATES SHE HAS COPD AND NO INCREASE IN COUGH NO INCREASE IN CHRONIC SHORTNESS OF BREATH SEEN AT [facility] TODAY FOR THIS PROBLEM, STATES SHE TESTED NEGATIVE FOR FLU/COVID/STREP. NO RX OR TREATMENT GIVEN PT HAS NOT TAKEN ANYTHING FOR PAIN NO HISTORY OF SIMILAR PT DOES USE INHALERS DAILY FOR COPD, DOES NOT RINSE MOUTH OR CLEAN INHALERS AFTER USE NO RECENT ANTIBIOTIC USE. PCP: [facility] Allergies and Home Medications Allergies Coded Allergies: codeine (Unverified Allergy, Mild, HIVES, 03/23/09) Home Medications Albuterol Sulfate 1 Puff Puff, 2 PUFF IH Q4H, (Reported) 1 PUFF = 90 MCG Fluconazole 200 Mg Tablet, 200 MG PO DAILY Prescribed by: LUKAS AHUJA on 07/12/212221 Nystatin 100,000 Unit/1 Ml Oral.susp, 4 ML PO QID 2 ML EACH SIDE OF MOUTH QID Prescribed by: LUKAS AHUJA on 07/12/212221 Patient Home Medication List Home Medication List Reviewed: Yes Review of Systems Review of Systems Constitutional: no symptoms reported Eyes: No Symptoms Reported Ears: No Symptoms Reported Nose: see HPI Mouth: see HPI Throat: see HPI Respiratory: cough Cardiovascular: no symptoms reported Gastrointestinal: no symptoms reported Musculoskeletal: no symptoms reported Skin: no symptoms reported; No rash Neurological: No Symptoms Reported Hematologic/Lymphatic: No Symptoms Reported Immunological/Allergic: no symptoms reported Past Wdellqa-Rjgihd-Osjazo Hx Patient Social History Tobacco Use?: Yes (1 11/18 PPD) Tobacco type used: Cigarettes Smoking Status: Current Everyday Smoker Substance use?: Yes Substance type: Methamphetamine, Marijuana Additional substance use comme: + IV METH USE, THC USE Alcohol Use?: No Pt feels they are or have been: No Immunizations Up To Date Tetanus Booster (TDap): Less than 5yrs PED Vaccines UTD: No Seasonal Allergies Seasonal Allergies: No Past Medical History Surgery/Hospitalization HX: EGD/COLONOSCOPY 03/27/[address] COOK. Surgeries: Yes Appendectomy, Gallbladder Respiratory: Yes Pneumonia, COPD Cardiac: No Neurological: Yes Headaches /Migraines Reproductive Disorders: No Female 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 PRODUCTION LEAD History: Menopausal Sexually Transmitted Disease: No HIV/AIDS: No Genitourinary: No Gastrointestinal: Yes (HEPATITIS C --NO TREATMENT) Gastroesophageal Reflux, Hepatitis Musculoskeletal: Yes (BILATERAL HAND PAIN ) Degenerate Disk Disease, Arthritis Endocrine: No HEENT: Yes (POOR DENTITION, GLASSES) Cataract Loss of Vision: Denies Hearing Impairment: Denies Cancer: No Psychosocial: Yes (SUBSTANCE ABUSE) Anxiety, Depression Integumentary: No (EXTENSIVE TATTOOS) Blood Disorders: No Adverse Reaction/Blood Tranf: No (N/A) Family Medical History Cancer 19 MOTHER (BRAIN AT AGE 63) G8 BROTHER (THROAT) G8 SISTER Congestive heart failure 19 FATHER Family history: Breast disease G8 SISTER (BREAST CANCER) Family history: Cardiovascular disease 19 FATHER Family history: Diabetes mellitus 19 MOTHER G8 BROTHER History of - respiratory disease 19 FATHER Human immunodeficiency virus (HIV) seropositivity G8 SISTER, Onset:Unknown Physical Exam Vital Signs Vital Signs - First Documented 07/12/21 21:15 Temp 37.0 Pulse 99 Resp 18 B/P (MAP) 135/72 (93) Pulse Ox 96 O2 Delivery Room Air Height, Weight, BMI Height: 5'2.00" Weight: 146lbs. oz. 66.768596qk; 25.00 BMI Method:Stated General Appearance: WD/WN, no apparent distress, other (CONSTANT MOVEMENTS OF BODY AND MOUTH. REEKS OF CIGARETTES; UNKEMPT) Eyes: bilateral eye PERRL Ears: bilateral ear TM normal Nose: normal inspection Mouth/Throat: other (MOST TEETH MISSING, COUPLE OF REMAINING TEETH WITH EXTENSIVE DECAY DOWN TO GUMS. EXTENSIVE THRUSH ON TONGUE AND SOME ON POSTERIOR PHARYNX, AND A LITTLE ON GUMS. ) Neck: normal inspection Cardiovascular: regular rate, rhythm Respiratory: normal breath sounds Neurologic/Psychiatric: no motor/sensory deficits, alert, normal mood/affect, oriented x 3 Skin: normal color, warm/dry, tattoos/piercings (EXTENSIVE TATTOOS. SORES/SCARS/SCABS TO FACE AND ARMS. ) Progress/Results/Core Measures Results/Orders Lab Results Laboratory Tests Test 07/12/21 21:25 Range/Units Influenza Type A (RT-PCR) Not Detected Not Detecte Influenza Type B (RT-PCR) Not Detected Not Detecte SARS-CoV-2 RNA (RT-PCR) Not Detected Not Detecte Group A Streptococcus Screen NEGATIVE NEGATIVE My Orders Orders - LUKAS AHUJA DO Rapid Strep A Screen (07/12/21 21:17) Covid 19 Inhouse Test (07/12/21 21:17) Influenza A And B By Pcr (07/12/21 21:17) Isolation Central Supply Req (07/12/21 21:17) Fluconazole Tablet (Ed Only) (Diflucan T (07/12/21 22:30) Lidocaine 2% Viscous 15 Ml (Xylocaine Vi (07/12/21 22:30) Medications Given in ED Current Medications Medications Dose Ordered Sig/Kemi Route Start Time Stop Time Status Last Admin Dose Admin Fluconazole 150 mg ONCE ONCE PO 07/12/21 22:30 07/12/21 22:31 DC 07/12/21 22:31 150 MG Lidocaine HCl 5 ml ONCE ONCE MM 07/12/21 22:30 07/12/21 22:31 DC 07/12/21 22:31 5 ML Vital Signs/I&O 07/12/21 07/12/21 21:15 22:39 Temp 37.0 Pulse 99 94 Resp 18 18 B/P (MAP) 135/72 (93) 135/72 Pulse Ox 96 97 O2 Delivery Room Air Room Air Blood Pressure Mean: 93 Progress Progress Note : Progress Note PLACED IN ISOLATION ROOM PPE WORN AT ALL TIMES COVID-19 TESTING PERFORMED Departure Impression Primary Impression: Thrush Disposition: HOME, SELF-CARE Condition: Stable Departure-Patient Inst. Decision time for Depature: 22:15 Referrals: [facility] (PCP) Primary Care Physician JAMES SIDDIQUI (Family) Primary Care Physician Patient Instructions: Thrush (DC) Add. Discharge Instructions: SOFT FOODS, AVOID FOODS THAT REQUIRE CHEWING LOTS OF CLEAR LIQUIDS TYLENOL AND MOTRIN NEEDED FOR PAIN OVER THE COUNTER ORA JEL TO MOUTH NEEDED FOR PAIN RINSE YOUR MOUTH WELL EVERY TIME AFTER YOU USE YOUR INHALERS, AND CLEAN YOUR INHALERS EVERY TIME AFTER YOU USE THEM FOLLOW UP WITH [facility] IN 3-4 DAYS IF NO BETTER All discharge instructions reviewed with patient and/or family. Voiced understanding. Scripts Nystatin (Nystatin) 100,000 Unit/1 Ml Oral.susp 4 ML PO QID for 14 Days, #250 ML 2 ML EACH SIDE OF MOUTH QID Prov: LUKAS AHUJA DO 07/12/21 Fluconazole (Diflucan) 200 Mg Tablet 200 MG PO DAILY, #15 TAB Prov: LUKAS AHUJA DO 07/12/21 LUKAS AHUJA DO Jul 12, 2021 22:18
[2021-07-12] MEDS ORDERED: FLUC200T PO (22:22)
[2021-07-12] MEDS ORDERED: NYST1000 PO (22:22)
[2021-07-12] MEDS ORDERED: FLUCONAZOLE 150 MG TABLET (ED ONLY) PO ONE (22:30)
[2021-07-12] MEDS ORDERED: LIDOCAINE 2% VISCOUS 15 ML UDC MM ONE (22:30)
[2021-07-12 22:39] VITALS: BP 135/72
== END 2021-07-12 22:39 | disposition home or self-care (01) ==
LOC: EDUNIT# 21:05 → ER 21:07
DX: B37.9 Candidiasis, unspecified (principal); J44.9 Chronic obstructive pulmonary disease, unspecified; F17.210 Nicotine dependence, cigarettes, uncomplicated; Z20.822 Contact with and (suspected) exposure to COVID-19
CPT/HCPCS: 87430; 87636; 99284

== ENCOUNTER 2021-09-10 15:12 | Emergency (ER) | payer SELFPAY ==
[~2021-09-10] VITALS: Ht 160 cm; Wt 68.0 kg
[~2021-09-10 15:12] MED LIST changes: +FLUC200T PO; +NYST1000 PO
[2021-09-10 15:20] VITALS: BP 137/86
[2021-09-10] MEDS ORDERED: KETOROLAC 60 MG/2 ML VIAL IM ONE (16:15)
--- NOTE | 2021-09-10 16:15 | ED Back Pain ---
General Chief Complaint: Back Problems Stated Complaint: FALL/BACK PAIN Nursing Triage Note: Patient ambulatory to FT2 with c/o left lower back pain after falling on Friday. Patient states she was walking on a wet porch when she slipped and fell, landing on her left back. There is bruising present. Source of Information: Patient Exam Limitations: No Limitations History of Present Illness Date Seen by Provider: Sep 10, 2021 Time Seen by Provider: 16:06 Initial Comments Fell Friday by slipping on stairs. Hit right mid-back. Taken Tylenol, provides some relief. No head/neck trauma. Allergies and Home Medications Allergies Coded Allergies: codeine (Unverified Allergy, Mild, HIVES, 03/23/09) Patient Home Medication List Albuterol Sulfate (Proair Hfa) 1 Puff Puff, 2 PUFF IH Q4H, (Reported) Entered as Reported by: TUAN WHELAN on 05/13/18 170 Fluconazole (Diflucan) 200 Mg Tablet, 200 MG PO DAILY Prescribed by: LUKAS AHUJA on 07/12/212221 Nystatin (Nystatin) 100,000 Unit/1 Ml Oral.susp, 4 ML PO QID Prescribed by: LUKAS AHUJA on 07/12/212221 Past Birkzfy-Qzxybg-Aeboqk Hx Patient Social History Tobacco Use?: Yes Tobacco type used: Cigarettes Smoking Status: Current Everyday Smoker Smokeless Tobacco Frequency: Never a User Use of E-Cig and/or Vaping dev: No Substance use?: No Alcohol Use?: No Pt feels they are or have been: No Immunizations Up To Date Tetanus Booster (TDap): Less than 5yrs PED Vaccines UTD: No Seasonal Allergies Seasonal Allergies: No Past Medical History Surgery/Hospitalization HX: Carpal tunnel surgery on left wrist on at [place] by Dr Giraldo Surgeries: Yes Appendectomy, Gallbladder Respiratory: Yes Pneumonia, COPD Cardiac: No Neurological: Yes Headaches /Migraines Reproductive Disorders: No Female 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 Sexually Transmitted Disease: No HIV/AIDS: No Genitourinary: No Gastrointestinal: Yes (HEPATITIS C --NO TREATMENT) Gastroesophageal Reflux, Hepatitis Musculoskeletal: Yes (BILATERAL HAND PAIN ) Degenerate Disk Disease, Arthritis Endocrine: No HEENT: Yes (POOR DENTITION, GLASSES) Cataract Loss of Vision: Denies Hearing Impairment: Denies Cancer: No Psychosocial: Yes (SUBSTANCE ABUSE) Anxiety, Depression Integumentary: No (EXTENSIVE TATTOOS) Blood Disorders: No Adverse Reaction/Blood Tranf: No (N/A) Family Medical History Cancer 19 MOTHER (BRAIN AT AGE 63) G8 BROTHER (THROAT) G8 SISTER Congestive heart failure 19 FATHER Family history: Breast disease G8 SISTER (BREAST CANCER) Family history: Cardiovascular disease 19 FATHER Family history: Diabetes mellitus 19 MOTHER G8 BROTHER History of - respiratory disease 19 FATHER Human immunodeficiency virus (HIV) seropositivity G8 SISTER, Onset:Unknown Physical Exam Vital Signs Vital Signs - First Documented 09/10/21 15:20 Temp 36.3 Pulse 83 Resp 18 B/P (MAP) 137/86 (103) Pulse Ox 95 O2 Delivery Room Air Capillary Refill : Less Than 3 Seconds Height, Weight, BMI Height: 5'2.00" Weight: 146lbs. oz. 66.214762gj; 26.00 BMI Method:Stated Progress/Results/Core Measures Results/Orders My Orders Orders - ANGIE FOOTE APRN Ribs/Unilateral With Chest (09/10/21 16:13) Ketorolac Injection (Toradol Injection) (09/10/21 16:15) Vital Signs/I&O 09/10/21 15:20 Temp 36.3 Pulse 83 Resp 18 B/P (MAP) 137/86 (103) Pulse Ox 95 O2 Delivery Room Air Blood Pressure Mean: 103 Departure Impression Primary Impression: Contusion of back wall of thorax Departure-Patient Inst. Referrals: [facility] (PCP) Primary Care Physician JAMES SIDDIQUI (Family) Primary Care Physician Patient Instructions: Contusion (DC) Add. Discharge Instructions: Plan: 1. May use ice/heat 20 minutes at a time as needed for pain/comfort. 2. May use Tylenol or Ibuprofen as needed for pain per package. Do not take more than directed. 3. Follow up with your doctor if your symptoms persist. 4. Return for any new, concerning, or worsening symptoms. All discharge instructions reviewed with patient and/or family. Voiced understanding. ANGIE FOOTE APRN Sep 10, 2021 16:15
--- NOTE | 2021-09-10 16:41 | Diagnostic Imaging Report ---
Indication: Recent fall. Left-sided chest pain A single view of the chest and 3 additional views of the left ribs were obtained The heart size and vascularity are normal. The lungs are clear. There is no effusion or pneumothorax. No rib fracture or other bony lesion is seen. IMPRESSION: Normal chest and left ribs. Dictated by: Dictated on workstation # [id number]
== END 2021-09-10 17:28 | disposition home or self-care (01) ==
LOC: EDUNIT# 15:12 → ER 15:13
DX: S20.222A Contusion of left back wall of thorax, initial encounter (principal); J44.9 Chronic obstructive pulmonary disease, unspecified; F17.210 Nicotine dependence, cigarettes, uncomplicated; W10.8XXA Fall (on) (from) other stairs and steps, initial encounter
CPT/HCPCS: 71101

== ENCOUNTER → 2022-01-11 | Outpatient (REF) ==
--- NOTE | 2022-01-11 10:13 | Diagnostic Imaging Report ---
INDICATION: Knee pain. 3 views were obtained. FINDINGS: There is some mild degenerative narrowing in the medial knee joint compartment. There is no fracture or dislocation. Soft tissues are unremarkable. There is no joint effusion. IMPRESSION: Mild degenerative narrowing in the medial knee joint compartment. Dictated by: Dictated on workstation # [id number]
== END ==
LOC: OCC 09:10
PROVIDERS: ATTEND Family Medicine
DX: M25.562 Pain in left knee (principal)
CPT/HCPCS: 73562

== ENCOUNTER 2022-06-20 21:55 | Emergency (ER) | payer SELFPAY ==
[~2022-06-20] VITALS: Ht 160 cm; Wt 68.0 kg
--- NOTE | 2022-06-21 00:19 | ED Lower Extremity ---
General Chief Complaint: Lower Extremity Stated Complaint: RIGHT FOOT PAIN Nursing Triage Note: C/O RIGHT MEDIAL FOOT PAIN AFTER "STEPPING WRONG" WHILE GOING DOWN STAIRS. DENIES INJURY. REPORTS HX BONE SPURS. Source: patient Exam Limitations: no limitations History of Present Illness Date Seen by Provider: Jun 21, 2022 Time Seen by Provider: 22:40 Initial Comments This 62-year-old woman presents to the emergency room immediately after injuring her right foot. She stepped down hard on the bottom step of the stairs and had immediate pain in her foot. She notes pain in the medial midfoot, around the heel, and around the bilateral malleoli. She does not recall rolling her ankle or stepping on any objects. She is uncertain of the mechanism that caused such pain. Allergies and Home Medications Allergies Coded Allergies: codeine (Unverified Allergy, Mild, HIVES, 03/23/09) Patient Home Medication List Home Medication List Reviewed: Yes Albuterol Sulfate (Proair Hfa) 1 Puff Puff, 2 PUFF IH Q4H, (Reported) Entered as Reported by: TUAN WHELAN on 05/13/18 1701 Discontinued Medications Fluconazole (Diflucan) 200 Mg Tablet, 200 MG PO DAILY Discontinued Reason: No Longer Taking Prescribed by: LUKAS AHUJA on 07/12/212221 Last Action: Discontinued Nystatin (Nystatin) 100,000 Unit/1 Ml Oral.susp, 4 ML PO QID Discontinued Reason: No Longer Taking Prescribed by: LUKAS AHUJA on 07/12/212221 Last Action: Discontinued Review of Systems Constitutional: no symptoms reported EENTM: no symptoms reported Respiratory: no symptoms reported Cardiovascular: no symptoms reported Gastrointestinal: no symptoms reported Genitourinary: no symptoms reported Musculoskeletal: see HPI Skin: no symptoms reported Past Cpnansi-Ylippo-Jjdbdz Hx Patient Social History Tobacco Use?: Yes Tobacco type used: Cigarettes Substance use?: No Alcohol Use?: No Pt feels they are or have been: No Immunizations Up To Date Tetanus Booster (TDap): Less than 5yrs PED Vaccines UTD: No Seasonal Allergies Seasonal Allergies: No Past Medical History Surgery/Hospitalization HX: COPD, PNEUMONIA, ALEJO, HEPATITIS C, GERD, DJD APPENDECTOMY, CHOLECYSTECTOMY, CARPEL TUNNEL Surgeries: Yes Appendectomy, Gallbladder, Orthopedic (Hand surgery) Respiratory: Yes Pneumonia, COPD Cardiac: No Neurological: Yes Headaches /Migraines Reproductive Disorders: No Female 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 Sexually Transmitted Disease: No HIV/AIDS: No Genitourinary: No Gastrointestinal: Yes (HEPATITIS C --NO TREATMENT) Gastroesophageal Reflux, Hepatitis Musculoskeletal: Yes (BILATERAL HAND PAIN ) Degenerate Disk Disease, Arthritis Endocrine: Yes Hypothyroidsim HEENT: Yes (POOR DENTITION, GLASSES) Cataract Loss of Vision: Denies Hearing Impairment: Denies Cancer: No Psychosocial: Yes (SUBSTANCE ABUSE) Anxiety, Depression Integumentary: No (EXTENSIVE TATTOOS) Blood Disorders: No Adverse Reaction/Blood Tranf: No (N/A) Family Medical History Cancer 19 MOTHER (BRAIN AT AGE 63) G8 BROTHER (THROAT) G8 SISTER Congestive heart failure 19 FATHER Family history: Breast disease G8 SISTER (BREAST CANCER) Family history: Cardiovascular disease 19 FATHER Family history: Diabetes mellitus 19 MOTHER G8 BROTHER History of - respiratory disease 19 FATHER Human immunodeficiency virus (HIV) seropositivity G8 SISTER, Onset:Unknown Physical Exam Vital Signs Vital Signs - First Documented 06/20/22 22:24 Temp 37.1 Pulse 87 Resp 16 B/P (MAP) 129/72 (91) Pulse Ox 97 O2 Delivery Room Air Capillary Refill : Less Than 3 Seconds Height, Weight, BMI Height: 5'2.00" Weight: 146lbs. oz. 66.643983ce; 26.00 BMI Method:Stated General Appearance: WD/WN, mild distress, thin HEENT: normal ENT inspection Cardiovascular: regular rate, rhythm, no edema, no murmur Respiratory: lungs clear, normal breath sounds, no respiratory distress Legs: right leg non-tender, right leg normal inspection, right leg normal range of motion, right leg no evidence of injury Ankles: right ankle normal inspection, right ankle normal range of motion, right ankle bone tenderness (Distal aspect of the bilateral malleoli are tender) Feet: right foot normal range of motion, right foot other (Unusual pattern of tenderness that involves the bilateral malleoli, the heel, and the medial midfoot. Capillary refill normal. Sensation intact. Retains movement of the toes.) Neurologic/Psychiatric: alert, normal mood/affect, oriented x 3, other (Jittery and dystonic movements noted) Skin: normal color, warm/dry Progress/Results/Core Measures Results/Orders My Orders Orders - SUSAN ROBERSON MD Foot, Right, 3 View (06/20/22 22:40) Ankle, Right, 3 Views (06/20/22 23:14) Vital Signs/I&O 06/20/22 06/21/22 22:24 00:26 Temp 37.1 37.0 Pulse 87 81 Resp 16 16 B/P (MAP) 129/72 (91) 121/70 Pulse Ox 97 98 O2 Delivery Room Air Room Air Blood Pressure Mean: 91 Progress Progress Note : Progress Note There was question of medial and lateral malleoli avulsions of the right ankle. Boot was applied and crutches were dispensed. Ankle was wrapped with Deon bandage. Patient has intolerance to many pain medications. She did not want to try any pain medications here. See discharge instructions for further discussion. Diagnostic Imaging Diagonstic Imaging: Xray Plain Films/CT/US/NM/MRI: ankle, other (Right foot) Comments X-rays of the right foot and right ankle were reviewed by me. Reports were not yet available. There were no bony injuries noted in the foot films. There was questionable avulsion fracture of each malleoli. Departure Impression Primary Impression: Right ankle sprain Qualified Codes: S93.401A - Sprain of unspecified ligament of right ankle, initial encounter Additional Impression: Right foot pain Disposition: 01 HOME, SELF-CARE Condition: Stable Departure-Patient Inst. Decision time for Depature: 00:16 Referrals: [facility] (PCP) Primary Care Physician JAMES SIDDIQUI (Family) Primary Care Physician Patient Instructions: Ankle Sprain ED Add. Discharge Instructions: Rest, elevation, compressive wrapping with an Deon bandage, icing in 20-minute intervals, and use of the boot should be helpful for reducing pain and swelling. Follow-up with your primary care provider soon as possible. The official report on your x-rays should be available tomorrow morning. Your x-rays were read by the ER physician but will be read again by the radiologist in the morning. Please call the ER after 9 AM to get the official reading. If there are no fractures identified on your x-rays, you may gradually add weightbearing and activity as tolerated. If no fractures are identified, you may use a firm Velcro or lace up brace to protect your ankle whenever active for the next 4 to 6 weeks. If fractures are identified on the x-rays, you will need to follow-up with an orthopedic provider. Call with questions or concerns. You may continue using Tylenol (acetaminophen) up to 1000 mg every 6 hours as needed for pain. Return to the ER if you have worsening symptoms despite following these instructions. All discharge instructions reviewed with patient and/or family. Voiced understanding. Work/School Note: Work Release Form Date Seen in the Emergency Department: Jun 21, 2022 Return to Work: Jun 25, 2022 Other Restrictions Listed Below: May need crutches, boot, or brace for up to 6 weeks. Copy Copies To 1: [facility]/SUSAN NORMAN MD Jun 21, 2022 00:19
[2022-06-21 00:26] VITALS: BP 121/70
--- NOTE | 2022-06-21 07:59 | Diagnostic Imaging Report ---
INDICATION: Right ankle pain EXAMINATION: Right ankle 06/20/2022 FINDINGS: 3 views ankle Tiny density adjacent to the medial malleolus could represent an acute avulsion fracture with adjacent soft tissue swelling noted. Ankle mortise intact and the remaining osseous structures are preserved. IMPRESSION: 1. Questioned small avulsion fracture along the medial malleolus with adjacent soft tissue swelling. Dictated by: Dictated on workstation # [id number]
--- NOTE | 2022-06-21 08:22 | Diagnostic Imaging Report ---
INDICATION: Foot pain. COMPARISON: Imaging from same date TECHNIQUE: 3 radiographs right foot dated 06/20/2022. FINDINGS: No acute fracture or dislocation. No destructive osseous process. Aiwz-fu-djwtevvl scattered degenerative changes are present, greatest involving the 1st MTP joint where there is moderate joint space narrowing and sclerosis of articular surfaces. Small plantar calcaneal enthesophytes. No suspicious radiopaque foreign body. IMPRESSION: No acute osseous abnormality with [id number]-uv-[id number] degenerative changes present. Dictated by: Dictated on workstation # [id number]
== END 2022-06-21 00:43 | disposition home or self-care (01) ==
LOC: EDUNIT# 21:55 → ER 21:58
DX: S93.401A Sprain of unspecified ligament of right ankle, initial encounter (principal); M79.671 Pain in right foot; X50.1XXA Overexertion from prolonged static or awkward postures, initial encounter
CPT/HCPCS: 73610; 73630; 99282; L2114

== ENCOUNTER 2022-10-23 08:37 | Emergency (ER) | payer OTHER ==
[~2022-10-23] VITALS: Ht 160 cm; Wt 68.0 kg
[~2022-10-23 08:37] MED LIST changes: +ALBU8.5H6 IH; -RT-ALBUINH IH
[2022-10-23] MEDS ORDERED: IBUPROFEN SUSP 100MG/5ML (MOTRIN) UDC PO ONE (09:15)
--- NOTE | 2022-10-23 09:50 | ED Upper Extremity ---
General Chief Complaint: Upper Extremity Stated Complaint: FALL AT WORK | RT ELBOW AND RT ARM INJ Nursing Triage Note: FELL AT WORK ON WET FLOOR, STATES SHE HIT HER RIGHT ELBOW AND NOW HAS PAIN. Source: patient Exam Limitations: other (? intoxication vs functional disability?) History of Present Illness Date Seen by Provider: Oct 23, 2022 Time Seen by Provider: 09:08 Initial Comments Patient is a 62-year-old female who presents to the emergency room with a chief complaint of right elbow pain. Patient reportedly slipped on some water on the floor and went down on her right elbow. Complains of significant pain to the lateral elbow with decreased range of motion. No other injuries to head neck chest abdomen pelvis or lower extremities. Onset: just prior to arrival Severity: moderate Pain/Injury Location: right elbow Method of Injury: fell Modifying Factors: Improves With Immobilization; Worse With Jarring, Worse With Movement, Worse With Pain Medication Allergies and Home Medications Allergies Coded Allergies: codeine (Unverified Allergy, Mild, HIVES, 10/23/22) Patient Home Medication List Home Medication List Reviewed: Yes Albuterol Sulfate (Ventolin Hfa) 1 Puff Puff, 2 PUFF IH Q4H, (Reported) Entered as Reported by: TUAN WHELAN on 05/13/18 1701 Review of Systems Constitutional: see HPI EENTM: no symptoms reported Respiratory: no symptoms reported Cardiovascular: no symptoms reported Gastrointestinal: no symptoms reported Genitourinary: no symptoms reported Musculoskeletal: joint pain (right elbow) Skin: no symptoms reported All Other Systems Reviewed Negative Unless Noted: Yes Past Ohjacjf-Ckqwmt-Kttjlt Hx Patient Social History Tobacco Use?: Yes Tobacco type used: Cigarettes Smoking Status: Current Everyday Smoker Substance use?: No Alcohol Use?: No Pt feels they are or have been: No Immunizations Up To Date Tetanus Booster (TDap): Less than 5yrs PED Vaccines UTD: No Seasonal Allergies Seasonal Allergies: No Past Medical History Surgery/Hospitalization HX: COPD, PNEUMONIA, ALEJO, HEPATITIS C, GERD, DJD, NIDDM APPENDECTOMY, CHOLECYSTECTOMY, CARPEL TUNNEL Surgeries: Yes Appendectomy, Gallbladder, Orthopedic Respiratory: Yes Pneumonia, COPD Cardiac: No Neurological: Yes Headaches /Migraines Reproductive Disorders: No Female 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 Sexually Transmitted Disease: No HIV/AIDS: No Genitourinary: No Gastrointestinal: Yes (HEPATITIS C --NO TREATMENT) Gastroesophageal Reflux, Hepatitis Musculoskeletal: Yes (BILATERAL HAND PAIN ) Degenerate Disk Disease, Arthritis Endocrine: Yes Hypothyroidsim HEENT: Yes (POOR DENTITION, GLASSES) Cataract Loss of Vision: Denies Hearing Impairment: Denies Cancer: No Psychosocial: Yes (SUBSTANCE ABUSE) Anxiety, Depression Integumentary: No (EXTENSIVE TATTOOS) Blood Disorders: No Adverse Reaction/Blood Tranf: No (N/A) Family Medical History Cancer 19 MOTHER (BRAIN AT AGE 63) G8 BROTHER (THROAT) G8 SISTER Congestive heart failure 19 FATHER Family history: Breast disease G8 SISTER (BREAST CANCER) Family history: Cardiovascular disease 19 FATHER Family history: Diabetes mellitus 19 MOTHER G8 BROTHER History of - respiratory disease 19 FATHER Human immunodeficiency virus (HIV) seropositivity G8 SISTER, Onset:Unknown Physical Exam Vital Signs Vital Signs - First Documented 10/23/22 09:02 Temp 36.4 Pulse 92 Resp 18 B/P (MAP) 134/79 (97) Pulse Ox 96 O2 Delivery Room Air Capillary Refill : Less Than 3 Seconds Height, Weight, BMI Height: 5'2.00" Weight: 146lbs. oz. 66.353527pd; 26.00 BMI Method:Stated General Appearance: WD/WN, other (agitated, jittery, moving about in the bed; almost akathsia) HEENT: PERRL/EOMI Neck: non-tender, supple Cardiovascular: regular rate, rhythm Respiratory: lungs clear, normal breath sounds, no respiratory distress, no accessory muscle use Gastrointestinal: normal bowel sounds, non tender, soft Shoulder: normal inspection, non-tender, no evidence of injury, normal ROM Elbow/Forearm: normal inspection, limited ROM, soft tissue tenderness, swelling Wrist: Yes normal inspection, Yes non-tender, Yes no evidence of injury, Yes normal ROM Hand: normal inspection, no evidence of injury Neurologic/Psychiatric: alert, normal mood/affect, oriented x 3 Skin: normal color, warm/dry, other (tiny abrasion lateral right elbow (appears scabbed)) Progress/Results/Core Measures Results/Orders My Orders Orders - SHAYNA HUTCHISON MD Ibuprofen Suspension (Motrin Suspension) (10/23/22 09:15) Elbow, Right, 3 Views (10/23/22 09:15) Medications Given in ED Current Medications Medications Dose Ordered Sig/Kemi Route Start Time Stop Time Status Last Admin Dose Admin Ibuprofen 600 mg ONCE ONCE PO 10/23/22 09:15 10/23/22 09:17 DC 10/23/22 09:46 600 MG Vital Signs/I&O 10/23/22 09:02 Temp 36.4 Pulse 92 Resp 18 B/P (MAP) 134/79 (97) Pulse Ox 96 O2 Delivery Room Air Blood Pressure Mean: 97 Diagnostic Imaging Diagonstic Imaging: Xray Comments right elbow (interpreted be me) - no fat pad, no dislocation, no obvious fracture; arthritic change. Departure Impression Primary Impression: Contusion of elbow Qualified Codes: S50.01XA - Contusion of right elbow, initial encounter Disposition: HOME, SELF-CARE Condition: Stable Departure-Patient Inst. Decision time for Depature: 09:50 Referrals: [facility] [place] (PCP) Primary Care Physician TARI GUTIERREZ (Family) Primary Care Physician Patient Instructions: Contusion (DC) Add. Discharge Instructions: Ice to the right elbow off and on for 24 hours as needed for swelling and pain. Tbfa-ltx-ckyslky ibuprofen or extra strength Tylenol as needed for discomfort. Follow-up with occupational health as directed. Return to the emergency department for any new, concerning or emergent complaints. Work/School Note: Work Release Form Date Seen in the Emergency Department: Oct 23, 2022 Return to Work: Oct 23, 2022 SHAYNA HUTCHISON MD Oct 23, 2022 09:50
--- NOTE | 2022-10-23 09:51 | Diagnostic Imaging Report ---
HISTORY: Right elbow pain after fall. TECHNIQUE: 3 views of the right elbow. COMPARISON: None FINDINGS: No acute fracture or dislocation is seen in the right elbow. Alignment is normal. Joint spaces are preserved. There is a small calcification at the anterior elbow which may be a small joint body or possibly an enthesophyte. There is no joint effusion. No cortical erosions are seen. There is mild posterior soft tissue swelling. IMPRESSION: 1. Mild posterior soft tissue swelling in the right elbow with no acute osseous abnormality seen. Dictated by: Dictated on workstation # [id number]
[2022-10-23 10:15] VITALS: BP 144/75
== END 2022-10-23 10:15 | disposition home or self-care (01) ==
LOC: EDUNIT# 08:37 → ER 08:40
DX: S50.01XA Contusion of right elbow, initial encounter (principal); F17.210 Nicotine dependence, cigarettes, uncomplicated; Z28.310 Unvaccinated for COVID-19; W01.0XXA Fall on same level from slipping, tripping and stumbling without subsequent striking against object, initial encounter; Y92.009 Unspecified place in unspecified non-institutional (private) residence as the place of occurrence of the external cause
CPT/HCPCS: 73080

== ENCOUNTER 2023-01-15 19:32 | Emergency (ER) | payer OTHER ==
--- NOTE | 2023-01-15 20:03 | ED Back Pain ---
General Chief Complaint: Back Problems Stated Complaint: BACK PAIN Source of Information: Patient Exam Limitations: No Limitations History of Present Illness Date Seen by Provider: Jan 15, 2023 Time Seen by Provider: 19:41 Initial Comments 62-year-old female presents to the emergency department today for mid back pain. She states she been dealing with this off and on for about 6 months now. She is seen her primary care doctor and had a CT scan, plain films with no obvious identified findings. She states she has been laying in bed last night and twisted a certain way causing spasm in her mid thoracic spine. She denies any chest pain, shortness of breath. Pain is dull throbbing, worse with twisting movements. No loss of bowel or bladder control, lower extremity weakness numbness or tingling, saddle anesthesia. She took a single ibuprofen today without much relief. She is asking for a couple of days off of work and does not want any pain medicines at this time. All other systems reviewed and negative except documented per HPI. Voice recognition software was used to help create this chart Allergies and Home Medications Allergies Coded Allergies: codeine (Unverified Allergy, Mild, HIVES, 10/23/22) Patient Home Medication List Home Medication List Reviewed: Yes Albuterol Sulfate (Ventolin Hfa) 1 Puff Puff, 2 PUFF IH Q4H, (Reported) Entered as Reported by: TUAN WHELAN on 05/13/18 1701 Review of Systems Constitutional: no symptoms reported Past Nghcgfi-Dxabvh-Tyryem Hx Patient Social History Tobacco Use?: Yes Tobacco type used: Cigarettes Smoking Status: Current Everyday Smoker Substance use?: No Alcohol Use?: No Immunizations Up To Date Tetanus Booster (TDap): Less than 5yrs PED Vaccines UTD: No Influenza Vaccine Up-to-Date: No; Not Current COVID19 Vaccine 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 Seasonal Allergies Seasonal Allergies: No Past Medical History Surgery/Hospitalization HX: COPD, PNEUMONIA, ALEJO, HEPATITIS C, GERD, DJD, NIDDM APPENDECTOMY, CHOLECYSTECTOMY, CARPEL TUNNEL Surgeries: Yes Appendectomy, Gallbladder, Orthopedic Respiratory: Yes Pneumonia, COPD Cardiac: No Neurological: Yes Headaches /Migraines Reproductive Disorders: No Female 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 Sexually Transmitted Disease: No HIV/AIDS: No Genitourinary: No Gastrointestinal: Yes (HEPATITIS C --NO TREATMENT) Gastroesophageal Reflux, Hepatitis Musculoskeletal: Yes (BILATERAL HAND PAIN ) Degenerate Disk Disease, Arthritis Endocrine: Yes Hypothyroidsim HEENT: Yes (POOR DENTITION, GLASSES) Cataract Loss of Vision: Denies Hearing Impairment: Denies Cancer: No Psychosocial: Yes (SUBSTANCE ABUSE) Anxiety, Depression Integumentary: No (EXTENSIVE TATTOOS) Blood Disorders: No Adverse Reaction/Blood Tranf: No (N/A) Family Medical History Cancer 19 MOTHER (BRAIN AT AGE 63) G8 BROTHER (THROAT) G8 SISTER Congestive heart failure 19 FATHER Family history: Breast disease G8 SISTER (BREAST CANCER) Family history: Cardiovascular disease 19 FATHER Family history: Diabetes mellitus 19 MOTHER G8 BROTHER History of - respiratory disease 19 FATHER Human immunodeficiency virus (HIV) seropositivity G8 SISTER, Onset:Unknown No Pertinent Family Hx Physical Exam Vital Signs Vital Signs - First Documented 01/15/23 19:42 O2 Delivery Room Air Capillary Refill : Height, Weight, BMI Height: 5'2.00" Weight: 146lbs. oz. 66.069565fc; 26.00 BMI Method:Stated General Appearance: No Apparent Distress, WD/WN HEENT: Normal ENT Inspection, Pharynx Normal Neck: Full Range of Motion, Non Tender, Supple Cardiovascular: Regular Rate, Rhythm, No Murmur, Normal Peripheral Pulses Respiratory: Chest Non Tender, Lungs Clear, Normal Breath Sounds, No Accessory Muscle Use, No Respiratory Distress Gastrointestinal: Normal Bowel Sounds, No Organomegaly, No Pulsatile Mass, Non Tender, Soft Back: Normal Inspection, No CVA Tenderness, Other (Tenderness palpation midline thoracic spine distally, near the T10. No step-off, deformity. No lateral tenderness.) Extremity: Other (Lower extremity with normal strength, sensation, reflexes bilaterally.) Neurologic/Psychiatric: Alert, Oriented x3, No Motor/Sensory Deficits, Normal Mood/Affect Skin: Normal Color, Warm/Dry Progress/Results/Core Measures Results/Orders Vital Signs/I&O 01/15/23 19:42 O2 Delivery Room Air Departure Communication (Admissions) Patient is hemodynamically stable. She has no red flag symptoms. Per her report she has had CT scan and plain films without any acute abnormalities. Symptoms off and on for the last 6 months and most consistent with thoracic strain. Symptoms are worse with twisting movements, bending movements and direct pressure. She has no anterior chest pain, shortness of breath, no indication of cardiac or pulmonary pathology. No indication for lab work including troponin at this time. No indication for EKG or chest x-ray. Impression Primary Impression: Back strain Qualified Codes: S39.012A - Strain of muscle, fascia and tendon of lower back, initial encounter Disposition: HOME, SELF-CARE Condition: Stable Departure-Patient Inst. Referrals: [facility] [place] Primary Care Physician Add. Discharge Instructions: Use ibuprofen and Tylenol as needed. Perform stretching exercises as discussed in the emergency department. Return to the emergency department for any severe concerns. Follow-up with your primary doctor for any continuation of symptoms. All discharge instructions reviewed with patient and/or family. Voiced understanding. Work/School Note: Work Release Form Date Seen in the Emergency Department: Jan 15, 2023 Return to Work: Jan 18, 2023 Restrictions: No Restrictions VALDO LÓPEZ DO Jan 15, 2023 20:03
[2023-01-15 20:05] VITALS: BP 128/76
== END 2023-01-15 20:05 | disposition home or self-care (01) ==
LOC: EDUNIT# 19:32 → ER 19:33
DX: S29.012A Strain of muscle and tendon of back wall of thorax, initial encounter (principal); F17.210 Nicotine dependence, cigarettes, uncomplicated; Z28.310 Unvaccinated for COVID-19; X50.1XXA Overexertion from prolonged static or awkward postures, initial encounter
CPT/HCPCS: 99281

== ENCOUNTER → 2023-06-17 | Outpatient (CLI) | payer OTHER ==
--- NOTE | 2023-06-17 10:45 | Diagnostic Imaging Report ---
EXAMINATION: Magnetic resonance imaging of the right knee without intravenous contrast DATE: June 17, 2023. COMPARISON: None. INDICATION: 63-year-old female, right knee pain. TECHNIQUE: Multiplanar, multisequence non contrast enhanced MR imaging was accomplished. FINDINGS: MENISCI: The medial meniscus is intact. The lateral meniscus is intact. LIGAMENTS AND TENDONS: The anterior and posterior cruciate ligaments are intact. The medial collateral ligament is intact. The iliotibial band, mid third lateral capsular ligament, fibular collateral ligament, biceps femoris tendon and conjoined tendon are intact. The quadriceps tendon and patella ligament are intact. JOINT: The articular cartilage surfaces are intact. There is no knee joint effusion, prominent synovitis, or intra-articular body. BONE: There is a nondisplaced fracture of the proximal tibial epiphysis which includes involvement of the lateral tibial plateau without offset of the articulating surface. There is associated marrow edema. The fracture extends to the tibial spines best demonstrated on coronal STIR sequence image 8. The additional bone marrow signal is unremarkable. BURSAE AND SOFT TISSUES: There is a small Todd's cyst. IMPRESSION: 1. Nondisplaced fracture of the proximal tibial epiphysis with increased involvement of the lateral tibial plateau and tibial spines. 2. Intact menisci and cruciate ligaments. Additional ligaments and tendons are intact. 3. Intact articular cartilage. No knee joint effusion. 4. Small Todd's cyst. Dictated by: Dictated on workstation # [id number]
== END ==
LOC: RAD 09:16
PROVIDERS: ATTEND Nurse Practitioner
DX: S83.281A Other tear of lateral meniscus, current injury, right knee, initial encounter (principal); S82.101A Unspecified fracture of upper end of right tibia, initial encounter for closed fracture; M71.21 Synovial cyst of popliteal space [Baker], right knee; X58.XXXA Exposure to other specified factors, initial encounter
CPT/HCPCS: 73721